=== PATIENT | male | born 1940 | race Caucasian/White ===

== ENCOUNTER → 2016-09-29 | Outpatient (CLI) | payer OTHER | LOC: BHFA 13:15 | PROVIDERS: ATTEND Internal Medicine Cardiovascular Disease | DX: I10 Essential (primary) hypertension (principal) ==

== ENCOUNTER → 2016-11-05 | Outpatient (CLI) | payer OTHER | LOC: BHFA 11:30 | PROVIDERS: ATTEND Internal Medicine Cardiovascular Disease | DX: E78.5 Hyperlipidemia, unspecified (principal); I10 Essential (primary) hypertension; I34.1 Nonrheumatic mitral (valve) prolapse; I34.0 Nonrheumatic mitral (valve) insufficiency; I27.2 Other secondary pulmonary hypertension ==

== ENCOUNTER 2017-01-06 12:30 | Day surgery (SDC) | payer OTHER ==
[2017-01-06] MEDS ORDERED: fentaNYL 100 MCG/2 ML INJ IVP ONE (13:38)
[2017-01-06] MEDS ORDERED: BENZOCAINE UNIT DOSE SPRAY HURRICAINE MM ONE (13:38)
[2017-01-06] MEDS ORDERED: NS 1,000 ML IV ONE (13:38)
[2017-01-06] MEDS ORDERED: MIDAZOLAM 2 MG/2 ML VIAL IVP ONE (13:38)
[2017-01-06] MEDS ORDERED: fentaNYL 100 MCG/2 ML INJ ONE (13:39)
[2017-01-06] MEDS ORDERED: MIDAZOLAM 2 MG/2 ML VIAL ONE (13:39)
--- NOTE | 2017-01-06 16:23 | ECHO ---
[id number] + + [address] : : [facility] [address] : : [phone] + + Transesophageal Echocardiographic Report + ---+ :Name: MARIA LUISA CHAN LStudy Date: 01/06/2017 01:35 PM : : Hospital Admission Number: [id number] [facility]: :: 1940 Gender: Male : :Age: 76 yrs Race: WH : :Reason For Study: Eval LV Fx : :History: Murmur : + ---+ Left Ventricle The left ventricular ejection fraction is normal. Atria The interatrial septum is intact with no evidence for an atrial septal defect. Injection of contrast documented no interatrial shunt. The atrial septum is aneurysmal. Mitral Valve There is mild mitral valve prolapse. There is no mitral valve stenosis. There is moderate mitral regurgitation with multiple jets. Tricuspid Valve There is trace to mild tricuspid regurgitation. Aortic Valve The aortic valve is normal in structure and function. There is no aortic stenosis. There is no aortic insufficiency. Pulmonic Valve The pulmonic valve is normal in structure and function. There is no pulmonic valvular regurgitation. Vessels The aortic root is normal size. Conclusion A 2D transesophageal echocardiogram with color flow Doppler was performed. The left ventricular ejection fraction is normal. The interatrial septum is intact with no evidence for an atrial septal defect. Injection of contrast documented no interatrial shunt. The atrial septum is mildly aneurysmal. There is mild mitral valve prolapse. There is moderate mitral regurgitation with multiple jets. There is trace to mild tricuspid regurgitation. The aortic valve is normal in structure and function. The mitral regurgitation is confirmed to be greater than mild so the patient should have a follow up transthoracic echocardiogram every year, realizing the severity of the mitral regurgitation will be underestimated on that study. Final Reading Physician: Mauri Workman signed on 01/06/2017 04:22 PM Ordering Physician: Slick Montana Performed By: Slick Montana MD
== END 2017-01-06 16:20 | disposition home or self-care (01) ==
LOC: FCATH 12:30
PROVIDERS: ATTEND Internal Medicine Cardiovascular Disease
PROC: B245ZZ4 Ultrasonography of Left Heart, Transesophageal (ICD-10-PCS; principal; 2017-01-06)
DX: I34.0 Nonrheumatic mitral (valve) insufficiency (principal); I34.1 Nonrheumatic mitral (valve) prolapse; E78.5 Hyperlipidemia, unspecified; I10 Essential (primary) hypertension; I27.2 Other secondary pulmonary hypertension
CPT/HCPCS: J2250; J3010

== ENCOUNTER → 2017-10-26 | Outpatient (CLI) | payer OTHER | LOC: BHFA 10:00 | PROVIDERS: ATTEND Internal Medicine Cardiovascular Disease | DX: I49.9 Cardiac arrhythmia, unspecified (principal); E78.5 Hyperlipidemia, unspecified; I34.0 Nonrheumatic mitral (valve) insufficiency; I34.1 Nonrheumatic mitral (valve) prolapse; I27.20 Pulmonary hypertension, unspecified; I10 Essential (primary) hypertension ==

== ENCOUNTER → 2017-12-07 | Outpatient (CLI) | payer OTHER | LOC: FIMAGING 11:25 | PROVIDERS: ATTEND Internal Medicine | DX: R91.8 Other nonspecific abnormal finding of lung field (principal); M41.85 Other forms of scoliosis, thoracolumbar region ==

== ENCOUNTER 2018-01-06 13:01 | Observation (INO) | payer OTHER ==
[2018-01-06] MEDS ORDERED: FAMOTIDINE 20 MG TAB PO ONE (13:02)
[2018-01-06] MEDS ORDERED: NS 1,000 ML IV ONE (13:02)
[2018-01-06] MEDS ORDERED: diphenhydrAMINE 25 MG CAP PO ONE (13:02)
[2018-01-06] MEDS ORDERED: ASPIRIN EC 325 MG TAB PO ONE ×2 (13:02→15:02)
[2018-01-06] MEDS ORDERED: DIAZEPAM 5 MG TAB PO ONE (13:02)
[2018-01-06] MEDS ORDERED: VERAPAMIL 5 MG/2 ML VIAL ONE (13:18)
[2018-01-06] MEDS ORDERED: HEPARIN 10,000 UNIT/10 ML MDV (1,000 UNIT/ML) ONE (13:18)
[2018-01-06] MEDS ORDERED: LIDOCAINE 1% 300 MG/30 ML SDV ONE (13:18)
[2018-01-06] MEDS ORDERED: fentaNYL 100 MCG/2 ML INJ ONE (13:18)
[2018-01-06] MEDS ORDERED: MIDAZOLAM 2 MG/2 ML VIAL ONE (13:18)
[2018-01-06] MEDS ORDERED: IOPAMIDOL (ISOVUE-370) 150 ML BTL IV ONE (13:19)
--- NOTE | 2018-01-06 13:27 | CPEKG ---
Heart Rate: 59 RR Interval: 1017 P-R Interval: 200 QRSD Interval: 100 QT Interval: 456 QTC Interval: 452 P [place]: 71 QRS [place]: 27 T Wave [place]: 62 EKG Severity - ABNORMAL ECG - EKG Impression: SINUS RHYTHM EKG Impression: VENTRICULAR PREMATURE COMPLEX EKG Impression: LEFT VENTRICULAR HYPERTROPHY Electronically Signed By: Toshia Diez 07-Jan-2018 19:59:56
--- NOTE | 2018-01-06 13:28 | PDGENHP ---
History & Physical Chief Complaint: Chest pain History of Present Illness: 77-year-old male history of hyperlipidemia, hypertension, PVCs, mitral regurgitation with a several day history of progressive exertional chest tightness. This began while hiking. He has increased in frequency and duration. He was seen at Dr. Ovalle office today. EKG showed well as T-waves and is admitted for diagnostic angiogram. He is currently not having pain. 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 Surgical history: Polypectomy, hemorrhoidectomy, kidney stone extraction, Mohs surgery, tonsillectomy Relevant Physical Exam: 130/70, heart rate 70,. No JVP at 90 degrees. Chest clear to auscultation percussion. Cardiac examination no RV lift. Regular rate and rhythm without gallop. 2/6 systolic murmur best heard at the apex. Abdomen is soft nontender with good bowel sounds. Extremities are free of edema. Radial pulses +2 and equal with negative Irvin's test. Femoral pulses + 2 and equal. Cardiorespiratory Assessment: Assessment: Unstable angina in this 77-year-old male with hypertension hyperlipidemia. Plan for diagnostic coronary angiogram with an eye towards intervention. Continue current medical therapy.
--- NOTE | 2018-01-06 13:29 | PDPROPOC ---
Sedation Plan of Care Sedation Plan of Care: vital signs stable, mental status noted, patient educated of risks, benefits, alternatives, patient can tolerate sedation ASA Classification: ASA 3 Planned drugs: fentanyl, midazolam Mallampati Score: Class 1 Mallampati Reference Image: Patient passed 3-3-2 rule?: Yes
[2018-01-06 13:46] LABS: PLATELET COUNT 268 10^3/uL (150-400)
[2018-01-06 13:58] LABS: PROTIME(PATIENT) 13.4 SEC (12.0-15.0)
[2018-01-06] MEDS ORDERED: TICAGRELOR 90 MG TAB ONE (15:00)
[2018-01-06] MEDS ORDERED: NITROGLYCERIN 0.4 MG BTL SL PRN (15:02)
[2018-01-06] MEDS ORDERED: ATROPINE SULFATE 1 MG/10 ML SYR IVP PRN (15:02)
[2018-01-06] MEDS ORDERED: TICAGRELOR 90 MG TAB PO ONE (15:02)
[2018-01-06] MEDS ORDERED: ONDANSETRON 4 MG/2 ML VIAL IVP PRN (15:02)
--- NOTE | 2018-01-06 15:08 | PDDXCAT ---
Diagnostic Cath Note - . Date: 01/06/18 Waxer Operator: Philip Indication: CCC Class III and IV angina on medical treatment - Procedure Access: left wrist Procedure: left heart catheterization, coronary angiography, left ventriculogram - Materials Left Heart Cath size: 5F Left Heart Cath materials: JR4.0, pigtail - Findings-Left Heart Catheterization LM: Unobstructed LAD: Subtotal proximally with thrombotic occlusion of the principal diagonal LCX: Luminal irregularities RCA: Dominant vessel: Luminal irregularities EDP: 14 mm of mercury post procedure LVEF: 60 Wall motion: Inferior hypokinesis Complications: None Estimated blood loss: <50ml Closure method: TR Band Assessment: Unstable angina with critical stenosis of the proximal LAD involving the principal diagonal. Preserved LV systolic function with normal filling pressures. Plan: Urgent PC I. After reviewing diagnostic angiograms it was elected to proceed with urgent PC I. Patient was anticoagulated with heparin. Therapeutic ACT was confirmed. Using a 5 [place] EBU 3.75 guiding catheter left main coronary selectively intubated guiding shots were performed. Using a 0.014 luge wire the LAD to stenosis was crossed. A 2.5 x 15 mm balloon was used to reestablish antegrade flow with improvement luminal diameter. 3.5 x 24 mm synergy stent was placed on the wire and positioned across the stenosis. Position confirmed in 2 orthogonal views. Deployed using a single inflation to 15 atmospheres. Repeat angiogram showed DAVID grade 3 flow to the apex. Left ventricular angiography was performed postprocedure. Conclusions: Unstable angina status post successful PCI and stenting of the LAD. Patient received 4 mg of Versed 100 mcg of fentanyl. 250 cc of contrast. 10.7 min of fluoroscopy with 921 mGy.
--- NOTE | 2018-01-06 15:45 | CPEKG ---
Heart Rate: 53 RR Interval: 1132 P-R Interval: 212 QRSD Interval: 104 QT Interval: 484 QTC Interval: 455 P [place]: 65 QRS [place]: 36 T Wave [place]: 48 EKG Severity - ABNORMAL ECG - EKG Impression: SINUS RHYTHM EKG Impression: LEFT ATRIAL ABNORMALITY EKG Impression: LEFT VENTRICULAR HYPERTROPHY EKG Impression: POSSIBLE ANTERIOR ISCHEMIA Electronically Signed By: Toshia Diez 07-Jan-2018 20:01:29
[2018-01-07] MEDS: TICAGRELOR 90 MG TAB PO SCH ×3 (02:58→10:58)
[2018-01-07 07:41] VITALS: BP 136/83
[2018-01-07] MEDS ORDERED: amLODIPine BESYLATE 5 MG TAB PO SCH (09:00)
[2018-01-07] MEDS ORDERED: ASPIRIN EC 81 MG TAB PO SCH (09:00)
[2018-01-07] MEDS ORDERED: ATORVASTATIN CALCIUM 20 MG TAB PO SCH (09:00)
[2018-01-07] MEDS ORDERED: HYDROCHLOROTHIAZIDE 12.5 MG CAP PO SCH (09:00)
[2018-01-07] MEDS ORDERED: FINASTERIDE 5 MG TAB PO SCH (09:00)
[2018-01-07] MEDS ORDERED: IRBESARTAN 150 MG TAB PO SCH (09:00)
--- NOTE | 2018-01-07 09:25 | GCON ---
[f rep st] CONSULTATION Patient was admitted by my partner, Dr Allen Palacios, on 01/06/2018. He has a long history of hype rlipidemia, hypertension, PVCs, mitral regurgitation, and came in with exertional chest tightness. He has a history also of pulmonary hypertension, monoclonal paraproteinemia. He was thought to have unstable angina and was taken to the construction laborer. Patient's sodium 143, potassiu m 3.5, chloride 104, CO2 28, BUN 19, creatinine 0.9. His cholesterol was 155, with an LDL of 76. It does not appear the patient had a troponin drawn prior to this. We will order 1 now to try to risk stratify him and see if he had a [id number] elevation myocardial infarction at this point time, w hich would impact his prognosis. The patient's electrocardiogram showed PVCs, LVH, sinus rhythm. The patient had terminal T-wave inve rsions in V2, V3, perhaps V4. The patient was taken to the construction laborer by my partner Dr Palacios and e patient was found to have a subtotally-occluded LAD with thrombotic occlusion of the principal diag onal, luminal irregularities in the circumflex, with luminal irregularities in the right coronary art lewis that was dominant. The ejection fraction was estimated at 60%. The patient had inferior hypokin esis, and the patient had anticoagulation with heparin. A 3.5 x 24 mm Synergy stent was placed. The repeat angiogram showed DAVID-3 flow to the apex. The patient is up and about and being discharged home. Discharge medications are attached and in the record. All questions from the family have been answered. Patient's wrist is excellent. The patie nt is stable. Followup will be with Dr Montana in 3-5 days. Diet, exercise, prevention have all been reviewed. All questions answered. The patient is in stable condition. However, if they deteriorate in any way they are encouraged to get back to the hospital right away. /[id number]/MODL
--- NOTE | 2018-01-07 10:46 | CPEKG ---
Heart Rate: 57 RR Interval: 1053 P-R Interval: 212 QRSD Interval: 104 QT Interval: 508 QTC Interval: 495 P [place]: 68 QRS [place]: 46 T Wave [place]: 74 EKG Severity - ABNORMAL ECG - EKG Impression: SINUS RHYTHM EKG Impression: PROBABLE LEFT ATRIAL ABNORMALITY EKG Impression: LEFT VENTRICULAR HYPERTROPHY EKG Impression: BORDERLINE PROLONGED QT INTERVAL EKG Impression: POSSIBLE ANTERIOR ISCHEMIA Electronically Signed By: Toshia Diez 07-Jan-2018 20:00:58
== END 2018-01-07 11:45 | disposition home or self-care (01) ==
LOC: FCATH 13:01 → F2W 15:02
PROVIDERS: ADMIT Internal Medicine Interventional Cardiology; ATTEND Internal Medicine Interventional Cardiology
PROC: B2151ZZ Fluoroscopy of Left Heart using Low Osmolar Contrast (ICD-10-PCS; principal; 2018-01-06)
PROC: 027034Z Dilation of Coronary Artery, One Artery with Drug-eluting Intraluminal Device, Percutaneous Approach (ICD-10-PCS; principal; 2018-01-06)
PROC: B2111ZZ Fluoroscopy of Multiple Coronary Arteries using Low Osmolar Contrast (ICD-10-PCS; principal; 2018-01-06)
PROC: 4A023N7 Measurement of Cardiac Sampling and Pressure, Left Heart, Percutaneous Approach (ICD-10-PCS; principal; 2018-01-06)
DX: I20.0 Unstable angina (principal); I10 Essential (primary) hypertension; E78.5 Hyperlipidemia, unspecified; J45.909 Unspecified asthma, uncomplicated; N40.0 Benign prostatic hyperplasia without lower urinary tract symptoms; M54.5 Low back pain; I34.0 Nonrheumatic mitral (valve) insufficiency; D47.2 Monoclonal gammopathy; I27.20 Pulmonary hypertension, unspecified
CPT/HCPCS: 93005; 93458; C1725; C1769; C1874; C1887; C9600; J1644; J2250; J3010; Q9967

== ENCOUNTER → 2018-01-19 | Outpatient (CLI) | payer OTHER | LOC: FCPNEURO 20:30 | PROVIDERS: ATTEND Psychiatry & Neurology Sleep Medicine | DX: G47.33 Obstructive sleep apnea (adult) (pediatric) (principal) ==

== ENCOUNTER → 2018-02-09 | Outpatient (CLI) | payer OTHER | LOC: BHFA 10:00 | PROVIDERS: ATTEND Internal Medicine Cardiovascular Disease | DX: I05.9 Rheumatic mitral valve disease, unspecified (principal) ==

== ENCOUNTER → 2018-11-24 | Outpatient (CLI) | payer OTHER | LOC: BHFA 13:15 | PROVIDERS: ATTEND Internal Medicine Cardiovascular Disease | DX: I34.1 Nonrheumatic mitral (valve) prolapse (principal) ==

== ENCOUNTER 2018-12-01 19:50 | Emergency (ER) | payer OTHER ==
--- NOTE | 2018-12-01 19:59 | EDPHY ---
H & P Time Seen by Provider: 12/01/18 19:55 HPI/ROS: CHIEF COMPLAINT: Right facial droop, slurred speech HISTORY OF PRESENT ILLNESS: The patient is a 78-year-old male who presents emergency department with new onset right facial droop and slurred speech. Patient's son is with him in the emergency department. Patient's son went to visit him this evening. The patient was acting normally until 7:00 p.m. The patient had sudden onset of right facial droop and slurred speech. Patient has had no previous stroke or TIA per report. The patient takes Plavix and aspirin but no other blood thinner. Patient has had no recent trauma. No recent surgery. REVIEW OF SYSTEMS: 10 systems were reveiwed and are negative with the exception of the elements mentioned in the history of present illness. Past Medical/Surgical History: Includes hypertension, high cholesterol Smoking Status: Never smoked Physical Exam: GENERAL: Well-appearing, in no acute distress, alert. HEENT: Eyes normal to inspection, normal pharynx, no signs of dehydration. NECK: Normal, supple. RESPIRATORY: Clear to auscultation bilaterally, no rales, rhonchi or wheezing. CVS: Regular rate and rhythm, no rubs, murmurs, or gallops. ABDOMEN: Soft, nontender, nondistended, no organomegaly. BACK: Normal to inspection, no CVA tenderness. SKIN: Normal color, no rash, warm, dry. No pallor. EXTREMITIES: No pedal edema, no calf tenderness, no Homans sign or cords, no joint swelling. NEURO/PSYCH: Higher functions: Alert and Oriented x3. Slurred speech. Normal mood and affect. Cranial nerves: Normal as tested. Cerebellar: Normal as tested. Good finger to nose, good [id number]. Peripheral exam: Normal motor exam. Normal sensation. Constitutional: Initial Vital Signs Temperature (C) 36.8 C 12/01/18 20:02 Heart Rate 70 12/01/18 20:02 Respiratory Rate 18 12/01/18 20:02 Blood Pressure 178/90 H 12/01/18 20:02 O2 Sat (%) 98 12/01/18 20:02 O2 Delivery Mode Room Air Allergies/Adverse Reactions: No Known Allergies Allergy (Verified 12/01/18 20:09) Home Medications: Medication Instructions Recorded Aspirin EC [Aspirin EC 81 mg (*)] 81 mg PO DAILY 04/23/14 Finasteride [Proscar 5 MG (*)] 5 mg PO DAILY 01/16/14 amLODIPine BESYLATE [Norvasc 5 mg 5 mg PO DAILY 01/16/14 (*)] Herbals/Supplements -Info Only 1 ea PO DAILY 01/06/18 Irbesartan/Hydrochlorothiazide 1 each PO DAILY 01/06/18 [Irbesartan-Hctz 300-12.5 mg Tb] Atorvastatin Calcium 80 mg PO DAILY #30 tablet 01/07/18 Ticagrelor [Brilinta] 90 mg PO BID #60 tab 01/07/18 Medical Decision Making - Diagnostics Imaging Results: Imaging Impressions Head CT 12/01/18 19:55 Impression: Acute hemorrhage in the left basal ganglia. Findings discussed with ARAMIS RAMIREZ 12/01/2018 at 20:02. ED Course/Re-evaluation: In the emergency department I met the patient on arrival. The patient came in through triage. He was made a stroke alert from triage. I met him in room 1 on arrival. He was placed in the pram. Prior to gaining access the patient was taken for noncontrast head CT imaging. I explained the plan to the patient. I answered all his questions. I took further history from the patient's son who is a physician. He was in the room. I met the patient when he returned from CT imaging. Patient still right facial droop and slurred speech. No headache. No other complaints. Head CT: Please refer the dictated report by Dr. Loaiza. The patient has a 2 cm left basal gangla bleed with no mass effect. 1999: I discussed case with Dr. Pires from Neurosurgery. He recommended the patient's blood pressure be kept under 140 systolic. No further imaging at this time. 2006: EKG shows normal sinus rhythm, normal rate, normal axis, normal intervals. LVH. There are no ST or T-wave abnormalities. I discussed the plan with the patient and his son is a physician. I answered all her questions. 2019: Discussed case with the hospitalist service, Dr. Hughes. The patient will be admitted. I discussed case with [facility]. They agree with the plan for pressure control on Cardene and admission. Differential Diagnosis: My differential includes but is not limited to ischemic CVA, hemorrhagic CVA, dissection, aneurysm, electrolyte abnormality, sugar abnormality, ACS, acute HI , Fuentes's palsy Critical Care Time: Patient required 45 min of critical care time. This was exclusive of any unbundled procedure. This was due the patient focal neurologic deficits, stroke alert, time spent at the bedside, consultation with Neurology, Neurosurgery and Internal Medicine - Data Points Laboratory Results: Laboratory Results 12/01/18 20:07 12/01/18 12/01/18 12/01/18 20:07 20:07 20:07 WBC 11.18 10^3/uL H 10^3/uL (3.80-9.50) RBC 5.03 10^6/uL 10^6/uL (4.40-6.38) Hgb 15.0 g/dL g/dL (13.7-17.5) Hct 44.3 % % (40.0-51.0) MCV 88.1 fL fL (81.5-99.8) MCH 29.8 pg pg (27.9-34.1) MCHC 33.9 g/dL g/dL (32.4-36.7) RDW 12.6 % % (11.5-15.2) Plt Count 284 10^3/uL 10^3/uL (150-400) MPV 10.3 fL fL (8.7-11.7) Neut % (Auto) 59.7 % % (39.3-74.2) Lymph % (Auto) 23.5 % % (15.0-45.0) Floyd % (Auto) 10.9 % % (4.5-13.0) Eos % (Auto) 4.5 % % (0.6-7.6) Baso % (Auto) 1.0 % % (0.3-1.7) Nucleat RBC Rel Count 0.0 % % (0.0-0.2) Absolute Neuts (auto) 6.67 10^3/uL H 10^3/uL (1.70-6.50) Absolute Lymphs (auto) 2.63 10^3/uL 10^3/uL (1.00-3.00) Absolute Monos (auto) 1.22 10^3/uL H 10^3/uL (0.30-0.80) Absolute Eos (auto) 0.50 10^3/uL H 10^3/uL (0.03-0.40) Absolute Basos (auto) 0.11 10^3/uL H 10^3/uL (0.02-0.10) Absolute Nucleated RBC 0.00 10^3/uL 10^3/uL (0-0.01) Immature Gran % 0.4 % % (0.0-1.1) Immature Gran # 0.05 10^3/uL 10^3/uL (0.00-0.10) APTT Pending Sodium Pending Potassium Pending Chloride Pending Carbon Dioxide Pending Anion Gap Pending BUN Pending Creatinine Pending Estimated GFR Pending Glucose Pending Calcium Pending Departure - Departure Disposition: [facility] [place] [facility] Acute Clinical Impression: Facial droop, Hemorrhagic stroke Condition: Good Referrals: NONE *PRIMARY CARE P,. [Primary Care Provider] - As per Instructions
[2018-12-01 20:17] LABS: PLATELET COUNT 284 10^3/uL (150-400)
[2018-12-01] MEDS ORDERED: niCARdipine/NACL 200 ML IV SCH ×2 (20:30→22:30)
[2018-12-01 22:11] VITALS: BP 121/64
[2018-12-01] MEDS ORDERED: ACETAMINOPHEN 325 MG TAB PO PRN (22:18)
[2018-12-01] MEDS ORDERED: ONDANSETRON 4 MG/2 ML VIAL IVP PRN (22:18)
[2018-12-01] MEDS ORDERED: ONDANSETRON DISINTEGRATING 4 MG TAB PO PRN (22:18)
[2018-12-01] MEDS ORDERED: NS 1,000 ML IV SCH (22:30)
--- NOTE | 2018-12-01 23:43 | CPEKG ---
Test Reason : OPEN Blood Pressure : / mmHG Vent. Rate : 066 BPM Atrial Rate : 066 BPM P-R Int : 200 ms QRS Dur : 107 ms QT Int : 440 ms P-R-T Axes : 073 046 020 degrees QTc Int : 461 ms Sinus rhythm Left atrial enlargement Left ventricular hypertrophy Confirmed by Viola Knutson ([id number]) on 12/01/2018 11:42:19 PM Referred By: Viola Knutson Confirmed By:Viola Knutson
== END 2018-12-01 22:30 | disposition still patient (30) ==
LOC: UNDOADMIN 20:20
DX: I63.9 Cerebral infarction, unspecified (principal); E78.00 Pure hypercholesterolemia, unspecified; I10 Essential (primary) hypertension
CPT/HCPCS: 82435-PO; 82565-PO; 82947-PO; 84132-PO; 84295-PO; 84484-ER; 84520-PO; 85014-ER; 96365; 96366

== ENCOUNTER 2018-12-05 10:39 | Inpatient (IN) | payer OTHER ==
[2018-12-05] MEDS ORDERED: ACETAMINOPHEN 325 MG TAB PO PRN (16:23)
[2018-12-05] MEDS ORDERED: hydrALAZINE 25 MG TAB PO PRN (16:23)
[2018-12-05] MEDS ORDERED: BISACODYL 10 MG SUPP PR PRN (16:23)
--- NOTE | 2018-12-05 17:32 | GHP ---
[f rep st] HISTORY AND PHYSICAL POST ADMISSION PHYSICIAN EVALUATION AND REHABILITATION TREATMENT PLAN DATE OF ADMISSION: 12/05/2018 DATE OF EVALUATION: 12/05/2018. TIME OF EVALUATION: 1545. REFERRING FACILITY: [facility]. REFERRING PHYSICIAN: Dr. Cuevas IMPAIRMENT GROUP: 1.2. DATE OF ONSET: 12/01/2018. CONSULTING PHYSICIANS: He was seen by neurologist, Dr. Vazquez. There is also a consultation with Neurosurgery. 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 ETIOLOGIC DIAGNOSIS: Right body involvement (left brain). HISTORY OF PRESENT ILLNESS: This patient was initially evaluated at [facility] on 12/01/2018, with sudden onset of right facial droop, slurred speech, and progressive right upper extremity weakness. Head CT showed a left basal ganglia intracranial hemorrhage of 1.5 x 2.2 cm in size and 1.9 cm craniocaudal. It had had slight expansion since prior head CT done approximately an hour earlier. The patient's son reports that there was also a concern for an area of ischemia, and so he was transferred to [facility] for further care. He had an increased dose of amlodipine, as well as treatment with p.r.n. hydralazine to achieve blood pressure control. Anti-platelet agents were held with consideration to restart in approximately 10 days. He was otherwise medically stabilized and appropriate for inpatient rehabilitation STUDIES AND LABS DURING HIS STAY: When seen at [facility] on , he had an elevated white blood cell count at 11.18. There was no left shift. CBC was otherwise normal. PTT was normal at 30.7. Basic metabolic profile was normal but for a mild elevation of glucose at 158 and 159 , but these were likely not fasting. Troponin was 0.01 and, on the day of discharge, a BMP was overall normal. Chloride was high at 112. BUN was high at 24. Creatinine clearance was 60. PRECAUTIONS: He is a fall risk, and he has aspiration risk. ACTIVE COMORBIDITIES: Has the tier 3 comorbidity of hemiparesis with weakness in the right upper extremity and right lower extremity. He otherwise has no active tier 1, tier 2, or tier 3 comorbidities. PAST MEDICAL HISTORY: 1. Coronary artery disease, status post drug-eluting stent. 2. Hypertension. 3. Dyslipidemia. 4. Benign prostatic hypertrophy with elevated PSA. 5. Obstructive sleep apnea. 6. Intolerance of positive airway pressure therapy. 7. Mitral regurgitation. PAST SURGICAL HISTORY: He had angioplasty and stenting in December of 2017. PRE-HOSPITAL MEDICATIONS: 1. Aspirin 81 mg p.o. daily. 2. Finasteride 5 mg p.o. daily. 3. Amlodipine 5 mg daily. 4. Ubiquinone daily. 5. Irbesartan/hydrochlorothiazide 300/12.5 mg 1 p.o. daily. 6. Atorvastatin 80 mg p.o. daily. 7. Ticagrelor 0 mg p.o. twice daily. ADMISSION MEDICATIONS: 1. Amlodipine 5 mg twice daily. 2. Atorvastatin 80 mg daily. 3. Finasteride 5 mg daily. 4. Hydralazine 10 mg 4 times daily p.r.n. systolic blood pressure greater than 150. 5. Irbesartan/hydrochlorothiazide 300/12.5, one p.o. daily. 6. Ubiquinone 60 mg p.o. daily. ALLERGIES: There are no known drug allergies. PSYCHOSOCIAL HISTORY: He is , and he lives with his . 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 He has a local son, who is a information services tech in [place]. There are 3 steps to enter the house. He is a nonsmoker. He enjoys an occasional glass of wine. FAMILY HISTORY: Noncontributory. REVIEW OF SYSTEMS: He reports he is sleeping well. He is not in pain. He denies cough or dyspnea. He denies chest pain or palpitations. He denies nausea, vomiting, constipation, or diarrhea. His weight has been stable. He denies urinary frequency or dysuria. He denies joint pain or joint swelling. In terms of neurologic symptoms, he denies headache or vision changes. He denies loss of sensation. He is aware of slightly slurred speech and difficulty with swallowing. He has right upper and lower extremity weakness. He feels some lightheadedness when standing in the morning, but not in the afternoon. Otherwise, a 10-point review of systems is negative. PHYSICAL EXAM: VITAL SIGNS: Blood pressure is 121/80. Heart rate is 70. Respiratory rate is 18. Oxygen saturation is 91% on room air. Temperature is 36.6 degrees centigrade. His weight is 83 kg, for a body mass index of 27.1. GENERAL: This is a well-nourished, well-developed, elderly man, appears chronologic age, seated in a chair, dressed in street clothes, cooperative, and in no acute distress. HEENT: Extraocular movements are intact. Pupils are equal, round, reactive to light. Mucous membranes are moist. Dentition is in good condition. He has a crowded airway, Mallampati class 3. NECK: Supple. HEART: there is an irregular rhythm. There are no murmurs, rubs, or gallops. LUNGS: Clear to auscultation bilaterally. ABDOMEN: Soft, nontender, nondistended with normoactive bowel sounds, and no hepatosplenomegaly. EXTREMITIES: There is no cyanosis, clubbing, or edema. NEUROLOGIC: He is alert and oriented x3. Cranial nerves 2-12 are grossly intact except for a right facial droop. Motor strength on the right upper extremity is 3/5 at the deltoid. He is able to develop considerable strength at the biceps and triceps at least 4/5, but this is not immediate and take some time to develop its full strength, and manufacturing associate is 2/5 to 3/5 on the right. Right hip flexor is 3/5. Right quadriceps is 5/5, and right hamstring is 3/5 to 4/5. Sensation is intact to light touch overall, and there is no extinction to double simultaneous stimulation. Deep tendon reflexes are globally hypoactive. Pronator drift is difficult to ascertain, as is difficult for him to maintain palms up with arms extended on the right side. There does seem to be slight pronator drift with his hand starting nearly vertical. On [id number] testing, he is unable to accomplish this on the right side. CURRENT LEVEL OF FUNCTION: Per the pre-admission screen. Regarding diet, feeding, and swallowing, he was on a regular texture diet with instructions to alternate liquids and solids. Maintain a slow rate and careful propulsion of the bolus prior to swallow. He required setup and supervision. Regarding dressing, he was dependent. He was continent of bowel and bladder. Bed mobility was done with close standby assist with the head of the bed elevated. [id number] transfers required contact guard assist using a front- wheeled walker with increased time to position and manufacturing associate the front wheeled walker with the right hand. Balance seated required minimal assist due to a rightward lean, and he was progressing to standby assist with voice cues. Endurance was good. He was able to ambulate 40 feet with maximal assistance of 1, and minimal assistance of a second person to follow with a wheelchair and provide hand-held assist. There was a short step length on the right with soft knee buckle in stance, and a heavy lean to the right throughout his gait. Regarding communication, he had moderate dysarthria. Regarding cognition, he scored 30/30 on the [facility] Mental Status Exam. He was noted to have right-sided inattention and decreased midline awareness. On today's exam, there are no significant changes from the preadmission screen. IMPRESSION: This is a 78-year-old man with history of coronary artery disease and drug-eluting stent, for which he has been treated with clopidogrel plus aspirin since December of 2017. He also has hypertension. He presented to the hospital with symptoms of right-sided weakness and slurred speech, and was diagnosed with a right basal ganglia and putamen hemorrhagic cerebrovascular accident. As there was also concern for an area of ischemia, he was transferred to [facility] where more sophisticated intervention was available than at [facility]. There, he was found to be stable in terms of the hemorrhagic cerebrovascular accident and no intervention was needed. He had blood pressure control with an increase in his amlodipine from his home dose of 5 mg daily to 5 mg twice daily. Anti-platelet agents were held. He also had hydralazine on a p.r.n. basis. He was otherwise medically stable, and once he had adequate blood pressure control, he was appropriate for transfer to Inpatient Rehabilitation. His goal is to return home with his family and supportive services. For a safe discharge, he will need to achieve independence with eating, grooming, and bed mobility, modified independence for transfers, toileting, bathing, and dressing , and will be able to ambulate with a least restrictive device on level and unlevel surfaces for community distances. His dysarthria will need to improve to a mild level, and he will need to demonstrate independence with exercises. He will have therapy with Physical Therapy, Occupational Therapy, and Speech and Language Pathology for 60 minutes for a day for each discipline on 5-7 days of the week. His expected duration of stay is 5-7 days. It is anticipated that upon discharge he will likely benefit from outpatient OT , NUMERICAL CONTROL DRILL PRESS OPERATOR, and PT. Additionally, he may benefit from a stroke support group. PLAN: 1. Hemorrhagic CVA in the right basal ganglia, and putamen with right-sided weakness and impairments to mobility and activities of daily living. PT and OT to optimize his function towards discharge home at the independent to modified independent level. 2. Dysarthria and left facial droop and subjective difficulty with swallowing. Evaluation and management per Speech and Language Pathology. 3. Hypertension. Amlodipine has been increased from 5 mg daily to 5 mg twice daily. He is continuing his home dose of irbesartan/hydrochlorothiazide of 300/ 12.5 mg daily. Will check orthostatic blood pressure and pulse in the morning and in the afternoon to assure that we are not bringing blood pressure too low, and increasing risk of falls. This may be a fine line, as his blood pressure needs to be systolic less than 140 to protect against subsequent hemorrhage. 4. Coronary artery disease with drug-eluting stent. He was told that clopidogrel would continue for 1 year, and after that he would be on aspirin alone. As he has had a hemorrhagic stroke, will need to verify with his stucco plasterer whether he needs to resume both anti-platelet agents for term. 5. Dyslipidemia. Continue atorvastatin. 6. BPH. Continue finasteride. 7. Irregular heart beat. He was in normal sinus rhythm on EKG at the emergency department at [place], and apparently there were no dysrhythmias seen on telemonitoring. Son reports that he had frequent PVCs. We will obtain EKG to assess current cardiac rhythm. 8. Prophylaxis. We will continue heparin 5000 units subcutaneous three times daily, which he was receiving in the hospital until his mobility increases to ambulating 150' or more 3 times a day. 9. Hospital discharge paperwork recommend followup with [facility], Dr. Vazquez, in approximately 10 days to consider resuming antiplatelet agents. His family may choose to do their followup with the local [place] [facility]. His primary stucco plasterer is Dr. Montana, and his primary care physician is Dr. Aleksandra Ovalle. /[id number]/MODL MTDD
[2018-12-05] MEDS: amLODIPine BESYLATE 5 MG TAB PO SCH (20:44)
[2018-12-05] MEDS: HEPARIN 5,000 UNIT/0.5 ML INJ SC SCH (21:28)
[2018-12-06] MEDS: HEPARIN 5,000 UNIT/0.5 ML INJ SC SCH ×3 (05:55→21:56)
[2018-12-06] MEDS ORDERED: Herbals/Supplements -Info Only PO SCH (09:00)
[2018-12-06] MEDS: FINASTERIDE 5 MG TAB PO SCH (09:06)
[2018-12-06] MEDS: HYDROCHLOROTHIAZIDE 25 MG TAB PO SCH (09:06)
[2018-12-06] MEDS: IRBESARTAN 150 MG TAB PO SCH (09:07)
[2018-12-06] MEDS: ATORVASTATIN CALCIUM 40 MG TAB PO SCH (09:08)
[2018-12-06] MEDS: amLODIPine BESYLATE 5 MG TAB PO SCH ×2 (09:08→21:54)
--- NOTE | 2018-12-06 20:50 | SOAPPROG ---
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 PT and OT to optimize his function towards discharge home at the independent to modified independent level. Dysarthria and left facial droop and subjective difficulty with swallowing. Evaluation and management per Speech and Language Pathology. Hypertension. Amlodipine has been increased from 5 mg daily to 5 mg twice daily. He is continuing his home dose of irbesartan/hydrochlorothiazide of 300/ 12.5 mg daily. Will check orthostatic blood pressure and pulse in the morning and in the afternoon to assure that we are not bringing blood pressure too low, and increasing risk of falls. This may be a fine line, as his blood pressure needs to be systolic less than 140 to protect against subsequent hemorrhage. Insomnia. Trial of trazodone 50 mg at HS starting 12/06/2018. Coronary artery disease with drug-eluting stent. He was told that clopidogrel would continue for 1 year, and after that he would be on aspirin alone. Discussed with Dr. Ba, Cardiology, 12/06/2018. Would not restart clopidogrel. Timing of resuming aspirin should be per Neurology. Would dose aspirin at 81 mg QD. Ventricular bigeminy on EKG 12/05/2018. Asymptomatic, with normal BMP, BNP and Mg on 12/06/2018. D/W Cardiology, Dr. Ba. No indication for intervention or change in treatment plan. Dyslipidemia. Continue atorvastatin. BPH. Continue finasteride. Irregular heart beat. He was in normal sinus rhythm on EKG at the emergency department at [place], and apparently there were no dysrhythmias seen on telemonitoring. Son reports that he had frequent PVCs. We will obtain EKG to assess current cardiac rhythm. Prophylaxis. We will continue heparin 5000 units subcutaneous three times daily , which he was receiving in the hospital until his mobility increases to ambulating 150' or more 3 times a day. FOLLOWUP: Hospital discharge paperwork recommend followup with [facility], Dr. Vazquez, in approximately 10 days to consider resuming antiplatelet agents. His family may choose to do their followup with the local [place] [facility]. His primary creative/art director is Dr. Montana, and his primary care physician is Dr. Aleksandra Ovalle. 12/06/18 20:51 Subjective: Reports poor sleep overnight. Otherwise without complaints. Denies f/c, cough , dyspnea, chest pain or palpitations. Not in pain. Objective: Vital Signs Temp Pulse Resp BP Pulse Ox 36.5 C 66 16 137/77 H 95 12/06/18 20:00 12/06/18 20:00 12/06/18 20:00 12/06/18 20:00 12/06/18 20:00 Laboratory Results 12/06/18 06:10 12/05/18 12/06/18 12/07/18 05:59 05:59 05:59 Intake Total 500 Output Total 600 Balance -100 Physical Exam - Physical Exam General Appearance: WD/WN, alert, no apparent distress Respiratory: normal breath sounds, No crackles, No rhonchi, No wheezing Cardiac/Chest: irregularly irregular, No edema, No diastolic murmur, No systolic murmur Skin: normal color, warm/dry Neuro/Psych: alert, normal mood/affect, oriented x 3, facial droop (left), speech abnormalities (Mild dysarthria) ICD10 Worksheet Patient Problems: Problems Problem Status Onset Facial droop Acute Hemorrhagic stroke Acute
[2018-12-06] MEDS ORDERED: traZODone 50 MG TAB PO SCH (21:00)
[2018-12-07] MEDS: HEPARIN 5,000 UNIT/0.5 ML INJ SC SCH ×3 (06:07→20:29)
--- NOTE | 2018-12-07 09:29 | SOAPPROG ---
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 Today's update: Some grogginess this morning after trial of trazodone 50 mg p.o. At bedtime, though he slept well. Cutting the dose in half after discussion with the patient to a total of 25 mg p.o. At bedtime. Otherwise he describes rehab is going well, no other medical issues impairing his progress. Continue rehabilitation plan. Additional medical issues reviewed without change today include hypertension which is controlled, coronary artery disease with a drug-eluting stent, secondary prophylaxis, ventricular bigeminy, dyslipidemia, BPH, prophylaxis. A total of 25 min was spent on the floor in the care of the patient, the majority of which was spent in counseling and coordination of care regarding sleep management options and coordinating with therapies. 12/07/18 09:25 Subjective: Chief complaint: Grogginess this morning No acute events overnight. Patient denies any new shortness of breath or chest pain, no new numbness, tingling, or weakness. He endorses that he slept better last night with a trial of trazodone 50 mg p.o. At bedtime, but feels a bit groggy this morning and some global weakness without focal changes. He denies any new speech changes. He is amenable to cutting the dose in half, considering other medications on future evenings. He feels he is making good progress in rehabilitation. 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 He did not recall me specifically but recalled projects and people that I worked with. Objective: Vital Signs Temp Pulse Resp BP Pulse Ox 36.7 C 67 16 119/76 93 12/07/18 06:14 12/07/18 08:00 12/07/18 06:14 12/07/18 08:00 12/07/18 06:14 Laboratory Results 12/06/18 06:10 12/06/18 12/07/18 12/08/18 05:59 05:59 05:59 Intake Total 500 300 400 Output Total 600 300 Balance -100 300 100 Physical Exam - Physical Exam General Appearance: WD/WN, alert, no apparent distress EENT: No scleral icterus (R), No scleral icterus (L) Respiratory: lungs clear, normal breath sounds, No respiratory distress, No accessory muscle use, No rales, No rhonchi, No wheezing Cardiac/Chest: normal peripheral pulses, other (Regularly irregular) Skin: normal color, warm/dry, No cyanosis, No diaphoresis Extremities: No pedal edema, No swelling Neuro/Psych: alert, normal mood/affect, motor weakness (Decreased strength incoordination of the right hand, 4/5 in peoplesoft financials and 1/5 in finger abduction) ICD10 Worksheet Patient Problems: Problems Problem Status Onset Facial droop Acute Hemorrhagic stroke Acute
[2018-12-07] MEDS: IRBESARTAN 150 MG TAB PO SCH (10:05)
[2018-12-07] MEDS: HYDROCHLOROTHIAZIDE 25 MG TAB PO SCH (10:05)
[2018-12-07] MEDS: amLODIPine BESYLATE 5 MG TAB PO SCH ×2 (10:05→20:28)
[2018-12-07] MEDS: FINASTERIDE 5 MG TAB PO SCH (10:06)
[2018-12-07] MEDS: ATORVASTATIN CALCIUM 40 MG TAB PO SCH (10:06)
[2018-12-07] MEDS: traZODone 50 MG TAB PO SCH (20:28)
[2018-12-08] MEDS: HEPARIN 5,000 UNIT/0.5 ML INJ SC SCH (06:30)
[2018-12-08] MEDS: amLODIPine BESYLATE 5 MG TAB PO SCH ×2 (08:26→21:27)
[2018-12-08] MEDS: ATORVASTATIN CALCIUM 40 MG TAB PO SCH (08:26)
[2018-12-08] MEDS: IRBESARTAN 150 MG TAB PO SCH (08:26)
[2018-12-08] MEDS: HYDROCHLOROTHIAZIDE 25 MG TAB PO SCH (08:26)
[2018-12-08] MEDS: FINASTERIDE 5 MG TAB PO SCH (08:26)
--- NOTE | 2018-12-08 09:57 | SOAPPROG ---
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 * Initial functional independence measure is 83 on 12/08/2018. Contact guard to standby assistance for transfers. Ambulated 150 ft with contact guard assist and front wheeled walker. Has loss of balance to the right if he is not attending. Grooming and hygiene were done standing with contact guard to close standby assist. Upper body dressing required setup and standby assist. Lower body dressing was standby assist except for donning socks for which she needed minimal assist. Bath transfer was done with contact guard assist, bathing with setup/standby assist. Toileting required contact guard assist for studying. * Continue PT and OT to optimize his function towards discharge home at the independent to modified independent level. Dysarthria and left facial droop and subjective difficulty with swallowing. * Has right labial/lingual/pupil muscle weakness and occasional leakage from the labial seal. Has mild dysarthria. * Continue Speech and Language Pathology. Impairment to higher level cognitive skills including organization and reasoning noted by LINE ERECTOR APPRENTICE. Hypertension. Amlodipine has been increased from 5 mg daily to 5 mg twice daily. He is continuing his home dose of irbesartan/hydrochlorothiazide of 300/ 12.5 mg daily. * Not orthostatic. * Adequate control. Insomnia. Was over-sedated in the morning after trazodone 50 mg at HS starting 12/06/2018. Dose has been decreased to 25 mg. Unclear if it is effective. Continue to monitor. Coronary artery disease with drug-eluting stent. He was told that clopidogrel would continue for 1 year, and after that he would be on aspirin alone. Discussed with Dr. Ba, Cardiology, 12/06/2018. Would not restart clopidogrel. Timing of resuming aspirin should be per Neurology. Would dose aspirin at 81 mg QD. Ventricular bigeminy on EKG 12/05/2018. Asymptomatic, with normal BMP, BNP and Mg on 12/06/2018. D/W Cardiology, Dr. Ba. No indication for intervention or change in treatment plan. Dyslipidemia. Continue atorvastatin. BPH. Continue finasteride. Irregular heart beat. He was in normal sinus rhythm on EKG at the emergency department at [place], and apparently there were no dysrhythmias seen on telemonitoring. Son reports that he had frequent PVCs. We will obtain EKG to assess current cardiac rhythm. Prophylaxis. Mobility is much improved. Discontinue heparin, 12/08/2018. DISPOSITION: Attended staffing, 12/08/2018. Discussed with case management, nursing, PT, OT, LINE ERECTOR APPRENTICE. Lives at home with his who is scheduled for knee surgery soon. Has assistance from son who is a plastic technician in [place]. Son and daughter from out of town will also be available to help. Goal to be at supervision level for mobility and ADLs. Tentative discharge date set for 12/13/2018. FOLLOWUP: Hospital discharge paperwork recommend followup with [facility], Dr. Vazquez, approximately 10 days after hospital discharge (12/15/2018 ) to consider resuming antiplatelet agents. His family may choose to do their followup with the local [facility] [facility]. His primary rivet machine operator is Dr. Montana, and his primary care physician is Dr. Aleksandra Ovalle. 12/08/18 10:28 Subjective: Had difficulty attaining sleep last night. Otherwise without complaints. Not in pain. No cough or dyspnea, no fevers or chills. He says his is pending him a book as it is his usual habit to read before falling asleep at night. Objective: Vital Signs Temp Pulse Resp BP Pulse Ox 36.4 C 47 L 16 129/78 H 95 12/08/18 06:43 12/08/18 06:43 12/08/18 06:43 12/08/18 08:26 12/08/18 06:43 Laboratory Results 12/06/18 06:10 12/07/18 12/08/18 12/09/18 05:59 05:59 05:59 Intake Total 300 640 Output Total 300 Balance 300 340 - Time Spent With Patient Time Spent With Patient: Greater than 35 min floor time today, including more than 50% of time in coordination of care during staffing, and counseling patient. Physical Exam - Physical Exam General Appearance: WD/WN, alert, no apparent distress Respiratory: normal breath sounds, No crackles, No rhonchi, No wheezing Cardiac/Chest: regular rate, rhythm, No edema, No diastolic murmur, No systolic murmur Skin: normal color, warm/dry Extremities: No calf tenderness Neuro/Psych: alert, normal mood/affect, oriented x 3, abnormal gait (Ambulating with PT using a walking staff in left hand. Mildly unsteady.), facial droop ( Right) ICD10 Worksheet Patient Problems: Problems Problem Status Onset Facial droop Acute Hemorrhagic stroke Acute
--- NOTE | 2018-12-08 14:40 | CPEKG ---
Test Reason : OPEN Blood Pressure : / mmHG Vent. Rate : 081 BPM Atrial Rate : 071 BPM P-R Int : 172 ms QRS Dur : 088 ms QT Int : 308 ms P-R-T Axes : 084 079 228 degrees QTc Int : 275 ms SINUS RHYTHM VENTRICULAR BIGEMINY NONSPECIFIC T ABNORMALITIES, DIFFUSE LEADS Confirmed by Slick Montana ([id number]) on 12/08/2018 2:39:38 PM Referred By: Papo Narayanan Confirmed By:Slick Montana
[2018-12-08] MEDS: traZODone 50 MG TAB PO SCH (21:27)
[2018-12-09] MEDS: FINASTERIDE 5 MG TAB PO SCH (08:01)
[2018-12-09] MEDS: ATORVASTATIN CALCIUM 40 MG TAB PO SCH (08:01)
[2018-12-09] MEDS: HYDROCHLOROTHIAZIDE 25 MG TAB PO SCH (08:02)
[2018-12-09] MEDS: amLODIPine BESYLATE 5 MG TAB PO SCH ×2 (08:03→21:01)
[2018-12-09] MEDS: IRBESARTAN 150 MG TAB PO SCH (08:03)
--- NOTE | 2018-12-09 11:53 | HOSPPROG ---
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 * Initial functional independence measure is 83 on 12/08/2018. Contact guard to standby assistance for transfers. Ambulated 150 ft with contact guard assist and front wheeled walker. Has loss of balance to the right if he is not attending. Grooming and hygiene were done standing with contact guard to close standby assist. Upper body dressing required setup and standby assist. Lower body dressing was standby assist except for donning socks for which she needed minimal assist. Bath transfer was done with contact guard assist, bathing with setup/standby assist. Toileting required contact guard assist for studying. * Continue PT and OT to optimize his function towards discharge home at the independent to modified independent level. Dysarthria and left facial droop and subjective difficulty with swallowing. * Has right labial/lingual/pupil muscle weakness and occasional leakage from the labial seal. Has mild dysarthria. * Continue Speech and Language Pathology. Impairment to higher level cognitive skills including organization and reasoning noted by SILVERWARE ASSEMBLER. Hypertension. Amlodipine has been increased from 5 mg daily to 5 mg twice daily. He is continuing his home dose of irbesartan/hydrochlorothiazide of 300/ 12.5 mg daily. * Not orthostatic. * Adequate control. Insomnia. Was over-sedated in the morning after trazodone 50 mg at HS starting 12/06/2018. Dose has been decreased to 25 mg. Unclear if it is effective. Continue to monitor. Coronary artery disease with drug-eluting stent. He was told that clopidogrel would continue for 1 year, and after that he would be on aspirin alone. Discussed with Dr. Ba, Cardiology, 12/06/2018. Would not restart clopidogrel. Timing of resuming aspirin should be per Neurology. Would dose aspirin at 81 mg QD. Ventricular bigeminy on EKG 12/05/2018. Asymptomatic, with normal BMP, BNP and Mg on 12/06/2018. D/W Cardiology, Dr. Ba. No indication for intervention or change in treatment plan. Dyslipidemia. Continue atorvastatin. BPH. Continue finasteride. Irregular heart beat. He was in normal sinus rhythm on EKG at the emergency department at [facility], and apparently there were no dysrhythmias seen on telemonitoring. Son reports that he had frequent PVCs. We will obtain EKG to assess current cardiac rhythm. Prophylaxis. Mobility is much improved. Discontinue heparin, 12/08/2018. DISPOSITION: Attended staffing, 12/08/2018. Discussed with case management, nursing, PT, OT, SILVERWARE ASSEMBLER. Lives at home with his who is scheduled for knee surgery soon. Has assistance from son who is a auto mechanic in [place]. Son and daughter from out of town will also be available to help. Goal to be at supervision level for mobility and ADLs. Tentative discharge date set for 12/13/2018. FOLLOWUP: Hospital discharge paperwork recommend followup with [facility], Dr. Vazquez, approximately 10 days after hospital discharge (12/15/2018 ) to consider resuming antiplatelet agents. His family may choose to do their followup with the local [facility]. His primary surgical services tech is Dr. Montana, and his primary care physician is Dr. Aleksandra Ovalle. Subjective: no new complaitns Objective: Vital Signs Temp Pulse Resp BP Pulse Ox 36.3 C 68 16 121/68 H 93 12/09/18 07:53 12/09/18 07:53 12/09/18 07:53 12/09/18 08:03 12/09/18 07:53 Laboratory Results 12/06/18 06:10 12/08/18 12/09/18 12/10/18 05:59 05:59 05:59 Intake Total 640 2790 360 Output Total 300 Balance 340 2790 360 - Physical Exam Constitutional: no apparent distress, appears nourished, not in pain Eyes: anicteric sclera, EOMI Ears, Nose, Mouth, Throat: moist mucous membranes Cardiovascular: regular rate and rhythym Respiratory: no respiratory distress, no rales or rhonchi, clear to auscultation Skin: warm Neurologic: AAOx3 Psychiatric: interacting appropriately, not anxious, not encephalopathic, thought process linear ICD10 Worksheet Patient Problems: Problems Problem Status Onset Facial droop Acute Hemorrhagic stroke Acute
[2018-12-09] MEDS: traZODone 50 MG TAB PO SCH (21:01)
[2018-12-10] MEDS: IRBESARTAN 150 MG TAB PO SCH (08:16)
[2018-12-10] MEDS: amLODIPine BESYLATE 5 MG TAB PO SCH ×2 (08:16→21:13)
[2018-12-10] MEDS: FINASTERIDE 5 MG TAB PO SCH (08:16)
[2018-12-10] MEDS: ATORVASTATIN CALCIUM 40 MG TAB PO SCH (08:16)
[2018-12-10] MEDS: HYDROCHLOROTHIAZIDE 25 MG TAB PO SCH (08:16)
--- NOTE | 2018-12-10 12:19 | HOSPPROG ---
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 * Initial functional independence measure is 83 on 12/08/2018. Contact guard to standby assistance for transfers. Ambulated 150 ft with contact guard assist and front wheeled walker. Has loss of balance to the right if he is not attending. Grooming and hygiene were done standing with contact guard to close standby assist. Upper body dressing required setup and standby assist. Lower body dressing was standby assist except for donning socks for which she needed minimal assist. Bath transfer was done with contact guard assist, bathing with setup/standby assist. Toileting required contact guard assist for studying. * Continue PT and OT to optimize his function towards discharge home at the independent to modified independent level. Dysarthria and left facial droop and subjective difficulty with swallowing. * Has right labial/lingual/pupil muscle weakness and occasional leakage from the labial seal. Has mild dysarthria. * Continue Speech and Language Pathology. Impairment to higher level cognitive skills including organization and reasoning noted by FIBERGLASS MACHINE OPERATOR. Hypertension. Amlodipine has been increased from 5 mg daily to 5 mg twice daily. He is continuing his home dose of irbesartan/hydrochlorothiazide of 300/ 12.5 mg daily. * Not orthostatic. * Adequate control. Insomnia. Was over-sedated in the morning after trazodone 50 mg at HS starting 12/06/2018. Dose has been decreased to 25 mg. Unclear if it is effective. Continue to monitor. Coronary artery disease with drug-eluting stent. He was told that clopidogrel would continue for 1 year, and after that he would be on aspirin alone. Discussed with Dr. Ba, Cardiology, 12/06/2018. Would not restart clopidogrel. Timing of resuming aspirin should be per Neurology. Would dose aspirin at 81 mg QD. Ventricular bigeminy on EKG 12/05/2018. Asymptomatic, with normal BMP, BNP and Mg on 12/06/2018. D/W Cardiology, Dr. Ba. No indication for intervention or change in treatment plan. Dyslipidemia. Continue atorvastatin. BPH. Continue finasteride. Irregular heart beat. He was in normal sinus rhythm on EKG at the emergency department at [facility], and apparently there were no dysrhythmias seen on telemonitoring. Son reports that he had frequent PVCs. We will obtain EKG to assess current cardiac rhythm. Prophylaxis. Mobility is much improved. Discontinue heparin, 12/08/2018. DISPOSITION: Attended staffing, 12/08/2018. Discussed with case management, nursing, PT, OT, FIBERGLASS MACHINE OPERATOR. Lives at home with his who is scheduled for knee surgery soon. Has assistance from son who is a folder tier in [place]. Son and daughter from out of town will also be available to help. Goal to be at supervision level for mobility and ADLs. Tentative discharge date set for 12/13/2018. FOLLOWUP: Hospital discharge paperwork recommend followup with [facility], Dr. Vazquez, approximately 10 days after hospital discharge (12/15/2018 ) to consider resuming antiplatelet agents. His family may choose to do their followup with the local [facility]. His primary annealing furnace operator is Dr. Montana, and his primary care physician is Dr. Aleksandra Ovalle. Subjective: no new complaints Objective: Vital Signs Temp Pulse Resp BP Pulse Ox 36.6 C 69 12 129/79 H 93 12/10/18 07:12 12/10/18 07:12 12/10/18 07:12 12/10/18 08:16 12/10/18 07:12 Laboratory Results 12/06/18 06:10 12/09/18 12/10/18 12/11/18 05:59 05:59 05:59 Intake Total 2790 1260 240 Output Total 1 Balance 2790 1259 240 - Physical Exam Constitutional: no apparent distress, appears nourished, not in pain Eyes: anicteric sclera, EOMI Ears, Nose, Mouth, Throat: moist mucous membranes Cardiovascular: regular rate and rhythym Respiratory: no respiratory distress Skin: warm Neurologic: AAOx3 Psychiatric: interacting appropriately, not anxious, not encephalopathic, thought process linear ICD10 Worksheet Patient Problems: Problems Problem Status Onset Facial droop Acute Hemorrhagic stroke Acute
[2018-12-10] MEDS: traZODone 50 MG TAB PO SCH (21:13)
[2018-12-11] MEDS: amLODIPine BESYLATE 5 MG TAB PO SCH ×2 (08:54→20:58)
[2018-12-11] MEDS: ATORVASTATIN CALCIUM 40 MG TAB PO SCH (08:55)
[2018-12-11] MEDS: HYDROCHLOROTHIAZIDE 25 MG TAB PO SCH (08:56)
[2018-12-11] MEDS: FINASTERIDE 5 MG TAB PO SCH (08:56)
[2018-12-11] MEDS: IRBESARTAN 150 MG TAB PO SCH (08:57)
--- NOTE | 2018-12-11 09:48 | SOAPPROG ---
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 * Initial functional independence measure is 83 on 12/08/2018. Contact guard to standby assistance for transfers. Ambulated 150 ft with contact guard assist and front wheeled walker. Has loss of balance to the right if he is not attending. Grooming and hygiene were done standing with contact guard to close standby assist. Upper body dressing required setup and standby assist. Lower body dressing was standby assist except for donning socks for which she needed minimal assist. Bath transfer was done with contact guard assist, bathing with setup/standby assist. Toileting required contact guard assist for studying. * Continue PT and OT to optimize his function towards discharge home at the independent to modified independent level. Dysarthria and left facial droop and subjective difficulty with swallowing. * Has right labial/lingual/pupil muscle weakness and occasional leakage from the labial seal. Has mild dysarthria. * Continue Speech and Language Pathology. Impairment to higher level cognitive skills including organization and reasoning noted by JORDAN MAN. Hypertension. Amlodipine has been increased from 5 mg daily to 5 mg twice daily. He is continuing his home dose of irbesartan/hydrochlorothiazide of 300/ 12.5 mg daily. * Not orthostatic. * Adequate control. Insomnia. Was over-sedated in the morning after trazodone 50 mg at HS starting 12/06/2018. * Sleeping better with trazodone 25 mg at HS. Has concerns about sleep apnea. Should have sleep study as an outpatient after discharge. Coronary artery disease with drug-eluting stent. He was told that clopidogrel would continue for 1 year, and after that he would be on aspirin alone. Discussed with Dr. Ba, Cardiology, 12/06/2018. Would not restart clopidogrel. Timing of resuming aspirin should be per Neurology. Would dose aspirin at 81 mg QD. Ventricular bigeminy on EKG 12/05/2018. Asymptomatic, with normal BMP, BNP and Mg on 12/06/2018. D/W Cardiology, Dr. Ba. No indication for intervention or change in treatment plan. Dyslipidemia. Continue atorvastatin. BPH. Continue finasteride. Prophylaxis. Mobility is much improved. Discontinue heparin, 12/08/2018. DISPOSITION: Lives at home with his who is scheduled for knee surgery soon. Has assistance from son who is a hog confinement system manager in [place]. Son and daughter from out of town will also be available to help. Goal to be at supervision level for mobility and ADLs. Tentative discharge date set for 2018. FOLLOWUP: Hospital discharge paperwork recommend followup with [facility], Dr. Vazquez, approximately 10 days after hospital discharge (12/15/2018 ) to consider resuming antiplatelet agents. His family may choose to do their followup with the local [facility]. His primary safety teacher is Dr. Montana, and his primary care physician is Dr. Aleksandra Ovalle. 12/11/18 09:42 Subjective: Not sure he will be ready to go home on Tuesday. He reports his legs feel weak when he 1st gets up in the morning. His sleep last night was okay. He says he snores and he thinks he has sleep apnea, and several awakenings through the night. Otherwise without complaints. Objective: Vital Signs Temp Pulse Resp BP Pulse Ox 36.4 C 53 L 18 129/72 H 93 12/11/18 08:00 12/11/18 08:00 12/11/18 08:00 12/11/18 08:00 12/11/18 08:00 Laboratory Results 12/06/18 06:10 12/10/18 12/11/18 12/12/18 05:59 05:59 05:59 Intake Total 1260 780 550 Output Total 1 Balance 1259 780 550 Physical Exam - Physical Exam General Appearance: WD/WN, alert, no apparent distress Respiratory: normal breath sounds, No crackles, No rhonchi, No wheezing Cardiac/Chest: regular rate, rhythm, No diastolic murmur, No systolic murmur Skin: normal color, warm/dry Neuro/Psych: alert, normal mood/affect, oriented x 3, facial droop (Right) ICD10 Worksheet Patient Problems: Problems Problem Status Onset Facial droop Acute Hemorrhagic stroke Acute
[2018-12-11] MEDS: traZODone 50 MG TAB PO SCH (20:59)
[2018-12-12] MEDS: FINASTERIDE 5 MG TAB PO SCH (08:01)
[2018-12-12] MEDS: HYDROCHLOROTHIAZIDE 25 MG TAB PO SCH (08:01)
[2018-12-12] MEDS: ATORVASTATIN CALCIUM 40 MG TAB PO SCH (08:01)
[2018-12-12] MEDS: amLODIPine BESYLATE 5 MG TAB PO SCH (08:01)
[2018-12-12] MEDS: IRBESARTAN 150 MG TAB PO SCH (08:01)
--- NOTE | 2018-12-12 15:05 | SOAPPROG ---
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 * Initial functional independence measure is 83 on 12/08/2018. Contact guard to standby assistance for transfers. Ambulated 150 ft with contact guard assist and front wheeled walker. Has loss of balance to the right if he is not attending. Grooming and hygiene were done standing with contact guard to close standby assist. Upper body dressing required setup and standby assist. Lower body dressing was standby assist except for donning socks for which she needed minimal assist. Bath transfer was done with contact guard assist, bathing with setup/standby assist. Toileting required contact guard assist for studying. * Continue PT and OT to optimize his function towards discharge home at the independent to modified independent level. Dysarthria and left facial droop and subjective difficulty with swallowing. * Has right labial/lingual/pupil muscle weakness and occasional leakage from the labial seal. Has mild dysarthria. * Continue Speech and Language Pathology. Impairment to higher level cognitive skills including organization and reasoning noted by CHILD CARE CENTRE MANAGER. Hypertension. Amlodipine has been increased from 5 mg daily to 5 mg twice daily. He is continuing his home dose of irbesartan/hydrochlorothiazide of 300/ 12.5 mg daily. * Not orthostatic. * Adequate control. * Due to ankle edema, will reduce amlodipine from 5 mg twice daily to 5 mg q.day , and increase hydrochlorothiazide from 12.5 mg q.day to 25 mg q.day, starting . Check BMP 12/15/2018. Insomnia. Was over-sedated in the morning after trazodone 50 mg at HS starting 12/06/2018. * Sleeping better with trazodone 25 mg at HS. Has concerns about sleep apnea. Should have sleep study as an outpatient after discharge. Coronary artery disease with drug-eluting stent. He was told that clopidogrel would continue for 1 year, and after that he would be on aspirin alone. Discussed with Dr. Ba, Cardiology, 12/06/2018. Would not restart clopidogrel. Timing of resuming aspirin should be per Neurology. Would dose aspirin at 81 mg QD. Ventricular bigeminy on EKG 12/05/2018. Asymptomatic, with normal BMP, BNP and Mg on 12/06/2018. D/W Cardiology, Dr. Ba. No indication for intervention or change in treatment plan. Dyslipidemia. Continue atorvastatin. BPH. Continue finasteride. Prophylaxis. Mobility is much improved. Discontinued heparin, 12/08/2018. DISPOSITION: Lives at home with his who is scheduled for knee surgery soon. Has assistance from son who is a painting technician in [place]. Son and daughter from out of town will also be available to help. Goal to be at supervision level for mobility and ADLs. Tentative discharge date set for 2018. FOLLOWUP: Hospital discharge paperwork recommend followup with [facility], Dr. Vazquez, approximately 10 days after hospital discharge (12/15/2018 ) to consider resuming antiplatelet agents. His family may choose to do their followup with the local [facility]. His primary data analytics architect is Dr. Montana, and his primary care physician is Dr. Aleksandra Ovalle. 12/12/18 15:02 Subjective: No complaints. Sleep is at baseline. Not in pain. No cough or dyspnea, no fevers or chills. Objective: Vital Signs Temp Pulse Resp BP Pulse Ox 36.6 C 72 16 138/80 H 93 12/12/18 05:48 12/12/18 05:48 12/12/18 05:48 12/12/18 05:48 12/12/18 05:48 Laboratory Results 12/06/18 06:10 12/11/18 12/12/18 12/13/18 05:59 05:59 05:59 Intake Total 780 1740 600 Balance 780 1740 600 Physical Exam - Physical Exam General Appearance: WD/WN, alert, no apparent distress Respiratory: normal breath sounds, No crackles, No rhonchi, No wheezing Cardiac/Chest: regular rate, rhythm, edema (1 to 2+ bilateral ankles), No diastolic murmur, No systolic murmur Skin: normal color, warm/dry Neuro/Psych: alert, normal mood/affect, oriented x 3, other (Reduced coordination right upper extremity) ICD10 Worksheet Patient Problems: Problems Problem Status Onset Facial droop Acute Hemorrhagic stroke Acute
[2018-12-12] MEDS: traZODone 50 MG TAB PO SCH (20:25)
[2018-12-13] MEDS: IRBESARTAN 150 MG TAB PO SCH (08:29)
[2018-12-13] MEDS: HYDROCHLOROTHIAZIDE 25 MG TAB PO SCH (08:29)
[2018-12-13] MEDS: ATORVASTATIN CALCIUM 40 MG TAB PO SCH (08:30)
[2018-12-13] MEDS: amLODIPine BESYLATE 5 MG TAB PO SCH (08:30)
[2018-12-13] MEDS: FINASTERIDE 5 MG TAB PO SCH (08:30)
--- NOTE | 2018-12-13 10:53 | SOAPPROG ---
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 * Initial functional independence measure is 83 on 12/08/2018, improved to 103 on 12/13/2017. He has ambulated 650 ft using a trekking pole. He needs supervision especially as he develops fatigue. He has a right exam oral with path finding issues regarding objects on his right side. He has difficulties with sequencing and repair with his right upper and lower extremities. He has loss of balance at times. Standby assist level for ADLs but contact guard assist for mobility with ADLs. Due to fall risk, not yet ready to progressed to independent. * Continue PT and OT to optimize his function towards discharge home at the independent to modified independent level. Dysarthria and left facial droop and subjective difficulty with swallowing. * Has right labial/lingual/pupil muscle weakness and occasional leakage from the labial seal. Has mild dysarthria. * Improving with an NMES. * Mildly decreased executive function. * Continue Speech and Language Pathology. Hypertension. Amlodipine has been increased from 5 mg daily to 5 mg twice daily. He is continuing his home dose of irbesartan/hydrochlorothiazide of 300/ 12.5 mg daily. * Not orthostatic. * Adequate control. * Due to ankle edema, reduced e amlodipine from 5 mg twice daily to 5 mg q.day, and increased hydrochlorothiazide from 12.5 mg q.day to 25 mg q.day, starting . Check BMP 12/17/2018. Insomnia. Was over-sedated in the morning after trazodone 50 mg at HS starting 12/06/2018. * Sleeping better with trazodone 25 mg at HS. Has concerns about sleep apnea. Should have sleep study as an outpatient after discharge. Coronary artery disease with drug-eluting stent. He was told that clopidogrel would continue for 1 year, and after that he would be on aspirin alone. Discussed with Dr. Ba, Cardiology, 12/06/2018. Would not restart clopidogrel. Timing of resuming aspirin should be per Neurology. Would dose aspirin at 81 mg QD. Ventricular bigeminy on EKG 12/05/2018. Asymptomatic, with normal BMP, BNP and Mg on 12/06/2018. D/W Cardiology, Dr. aB. No indication for intervention or change in treatment plan. * Irregular rhythm has resolved. Dyslipidemia. Continue atorvastatin. BPH. Continue finasteride. Prophylaxis. Mobility is much improved. Discontinued heparin, 12/08/2018. DISPOSITION: Attended staffing, 15 min, 12/13/2018. Discussed with case management, nursing, dietitian, PT, OT, HR LEADER. Lives at home with his who has had recent knee surgery. Has assistance from son who is a home health attendant in [place]. Son and daughter from out of town will also be available to help. Goal to be at supervision level for mobility and ADLs. Tentative discharge date set for 12/18/2018. FOLLOWUP: Hospital discharge paperwork recommend followup with [facility], Dr. Vazquez, approximately 10 days after hospital discharge (12/15/2018 ) to consider resuming antiplatelet agents. His family may choose to do their followup with the local [facility]. His primary automatic trimming sewer is Dr. Montana, and his primary care physician is Dr. Aleksandra Ovalle. 12/13/18 10:45 Subjective: No complaints. Slept okay. Not in pain. Objective: Vital Signs Temp Pulse Resp BP Pulse Ox 36.4 C 68 16 146/82 H 93 12/13/18 07:18 12/13/18 07:18 12/13/18 07:18 12/13/18 07:18 12/13/18 07:18 Laboratory Results 12/06/18 06:10 12/12/18 12/13/18 12/14/18 05:59 05:59 05:59 Intake Total 1740 1380 480 Balance 1740 1380 480 - Time Spent With Patient Time Spent With Patient: Greater than 35 min floor time today, including more than 50% of time in coordination of care during staffing meeting, and counseling patient. Physical Exam - Physical Exam General Appearance: WD/WN, alert, no apparent distress Respiratory: normal breath sounds, No crackles, No rhonchi, No wheezing Cardiac/Chest: regular rate, rhythm, edema (Trace bilateral ankles), No diastolic murmur, No systolic murmur Skin: normal color, warm/dry Neuro/Psych: alert, normal mood/affect, oriented x 3 ICD10 Worksheet Patient Problems: Problems Problem Status Onset Facial droop Acute Hemorrhagic stroke Acute
[2018-12-13] MEDS: traZODone 50 MG TAB PO SCH (20:55)
[2018-12-14] MEDS: IRBESARTAN 150 MG TAB PO SCH (08:09)
[2018-12-14] MEDS: amLODIPine BESYLATE 5 MG TAB PO SCH (08:09)
[2018-12-14] MEDS: HYDROCHLOROTHIAZIDE 25 MG TAB PO SCH (08:09)
[2018-12-14] MEDS: ATORVASTATIN CALCIUM 40 MG TAB PO SCH (08:10)
[2018-12-14] MEDS: FINASTERIDE 5 MG TAB PO SCH (08:10)
--- NOTE | 2018-12-14 12:01 | SOAPPROG ---
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 * Initial functional independence measure is 83 on 12/08/2018, improved to 103 on 12/13/2017. He has ambulated 650 ft using a trekking pole. He needs supervision especially as he develops fatigue. He has a right exam oral with path finding issues regarding objects on his right side. He has difficulties with sequencing and repair with his right upper and lower extremities. He has loss of balance at times. Standby assist level for ADLs but contact guard assist for mobility with ADLs. Due to fall risk, not yet ready to progressed to independent. * Continue PT and OT to optimize his function towards discharge home at the independent to modified independent level. Dysarthria, left facial droop and subjective difficulty with swallowing. * Has right labial/lingual/pupil muscle weakness and occasional leakage from the labial seal. Has mild dysarthria. * Improving with an NMES. * Mildly decreased executive function. * Continue Speech and Language Pathology. Hypertension. Amlodipine has been increased from 5 mg daily to 5 mg twice daily. He is continuing his home dose of irbesartan/hydrochlorothiazide of 300/ 12.5 mg daily. * Not orthostatic. * Adequate control. * Due to ankle edema, reduced e amlodipine from 5 mg twice daily to 5 mg q.day, and increased hydrochlorothiazide from 12.5 mg q.day to 25 mg q.day, starting . Check BMP 12/17/2018. * Blood pressure slightly above target, 12/14/2018. If he continues to run higher than 140/90, would increase amlodipine from 5 mg daily to 7.5 mg daily. Insomnia. Was over-sedated in the morning after trazodone 50 mg at HS starting 12/06/2018. * Sleeping better with trazodone 25 mg at HS. Has concerns about sleep apnea. Should have sleep study as an outpatient after discharge. Coronary artery disease with drug-eluting stent. He was told that clopidogrel would continue for 1 year, and after that he would be on aspirin alone. Discussed with Dr. Ba, Cardiology, 12/06/2018. Would not restart clopidogrel. Timing of resuming aspirin should be per Neurology. Would dose aspirin at 81 mg QD. Ventricular bigeminy on EKG 12/05/2018. Asymptomatic, with normal BMP, BNP and Mg on 12/06/2018. D/W Cardiology, Dr. Ba. No indication for intervention or change in treatment plan. * Irregular rhythm has resolved. Dyslipidemia. Continue atorvastatin. BPH. Continue finasteride. Prophylaxis. Mobility is much improved. Discontinued heparin, 12/08/2018. DISPOSITION: Attended staffing, 15 min, 12/13/2018. Discussed with case management, nursing, dietitian, PT, OT, [employer]. Lives at home with his who has had recent knee surgery. Has assistance from son who is a sap administrator in [place]. Son and daughter from out of town will also be available to help. Goal to be at supervision level for mobility and ADLs. Tentative discharge date set for 12/18/2018. FOLLOWUP: Hospital discharge paperwork recommend followup with [facility], Dr. Vazquez, approximately 10 days after hospital discharge (12/15/2018 ) to consider resuming antiplatelet agents. His family may choose to do their followup with the local [facility]. His primary process design engineer is Dr. Montana, and his primary care physician is Dr. Aleksandra Ovalle. 12/14/18 12:00 Subjective: No complaints. Sleeps okay. Not in pain. No cough or dyspnea, no fevers or chills. Objective: Vital Signs Temp Pulse Resp BP Pulse Ox 36.5 C 69 16 140/85 H 93 12/14/18 07:36 12/14/18 07:36 12/14/18 07:36 12/14/18 07:36 12/14/18 07:36 Laboratory Results 12/06/18 06:10 12/13/18 12/14/18 12/15/18 05:59 05:59 05:59 Intake Total 1380 1160 Balance 1380 1160 Physical Exam - Physical Exam General Appearance: WD/WN, alert, no apparent distress Respiratory: No respiratory distress, No accessory muscle use Skin: normal color, warm/dry Neuro/Psych: alert, normal mood/affect, oriented x 3, abnormal gait (Practicing stepping over a threshold with forward and backward steps with physical therapy with trekking pole in the left hand. Has loss of balance to the right.) ICD10 Worksheet Patient Problems: Problems Problem Status Onset Facial droop Acute Hemorrhagic stroke Acute
[2018-12-14] MEDS: traZODone 50 MG TAB PO SCH (20:40)
[2018-12-15] MEDS: amLODIPine BESYLATE 5 MG TAB PO SCH (08:14)
[2018-12-15] MEDS: ASPIRIN EC 81 MG TAB PO SCH (08:15)
[2018-12-15] MEDS: ATORVASTATIN CALCIUM 40 MG TAB PO SCH (08:16)
[2018-12-15] MEDS: FINASTERIDE 5 MG TAB PO SCH (08:17)
[2018-12-15] MEDS: IRBESARTAN 150 MG TAB PO SCH (08:18)
[2018-12-15] MEDS: HYDROCHLOROTHIAZIDE 25 MG TAB PO SCH (08:18)
--- NOTE | 2018-12-15 11:39 | HOSPPROG ---
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 * Initial functional independence measure is 83 on 12/08/2018, improved to 103 on 12/13/2017. He has ambulated 650 ft using a trekking pole. He needs supervision especially as he develops fatigue. He has a right exam oral with path finding issues regarding objects on his right side. He has difficulties with sequencing and repair with his right upper and lower extremities. He has loss of balance at times. Standby assist level for ADLs but contact guard assist for mobility with ADLs. Due to fall risk, not yet ready to progressed to independent. * Continue PT and OT to optimize his function towards discharge home at the independent to modified independent level. Dysarthria, left facial droop and subjective difficulty with swallowing. * Has right labial/lingual/pupil muscle weakness and occasional leakage from the labial seal. Has mild dysarthria. * Improving with an NMES. * Mildly decreased executive function. * Continue Speech and Language Pathology. Hypertension. Amlodipine has been increased from 5 mg daily to 5 mg twice daily. He is continuing his home dose of irbesartan/hydrochlorothiazide of 300/ 12.5 mg daily. * Not orthostatic. * Adequate control. * Due to ankle edema, reduced e amlodipine from 5 mg twice daily to 5 mg q.day, and increased hydrochlorothiazide from 12.5 mg q.day to 25 mg q.day, starting . Check BMP 12/17/2018. * Blood pressure slightly above target, 12/14/2018. If he continues to run higher than 140/90, would increase amlodipine from 5 mg daily to 7.5 mg daily. Insomnia. Was over-sedated in the morning after trazodone 50 mg at HS starting 12/06/2018. * Sleeping better with trazodone 25 mg at HS. Has concerns about sleep apnea. Should have sleep study as an outpatient after discharge. Coronary artery disease with drug-eluting stent. He was told that clopidogrel would continue for 1 year, and after that he would be on aspirin alone. Discussed with Dr. Ba, Cardiology, 12/06/2018. Would not restart clopidogrel. Timing of resuming aspirin should be per Neurology. Would dose aspirin at 81 mg QD. Ventricular bigeminy on EKG 12/05/2018. Asymptomatic, with normal BMP, BNP and Mg on 12/06/2018. D/W Cardiology, Dr. Ba. No indication for intervention or change in treatment plan. * Irregular rhythm has resolved. * 12/15 - sounds like he may be in bigeminy today Dyslipidemia. Continue atorvastatin. BPH. Continue finasteride. Prophylaxis. Mobility is much improved. Discontinued heparin, 12/08/2018. Subjective: ahd an episode of worse aphasia after being awoken by son while taking a nap - resolved after a few minutes. otherwise no new complaints Objective: Vital Signs Temp Pulse Resp BP Pulse Ox 36.8 C 64 93 H 132/73 H 94 12/15/18 06:42 12/15/18 08:09 12/15/18 08:09 12/15/18 08:09 12/15/18 06:42 Laboratory Results 12/06/18 06:10 12/14/18 12/15/18 12/16/18 05:59 05:59 05:59 Intake Total 1160 1480 650 Balance 1160 1480 650 - Physical Exam Constitutional: no apparent distress, appears nourished, not in pain Eyes: anicteric sclera, EOMI Ears, Nose, Mouth, Throat: moist mucous membranes Cardiovascular: regular rate and rhythym Respiratory: no respiratory distress, no rales or rhonchi, clear to auscultation Skin: warm Neurologic: AAOx3 Psychiatric: interacting appropriately, not anxious, not encephalopathic, thought process linear ICD10 Worksheet Patient Problems: Problems Problem Status Onset Facial droop Acute Hemorrhagic stroke Acute
[2018-12-15] MEDS: traZODone 50 MG TAB PO SCH (22:09)
[2018-12-16] MEDS: ASPIRIN EC 81 MG TAB PO SCH (08:21)
[2018-12-16] MEDS: amLODIPine BESYLATE 5 MG TAB PO SCH (08:21)
[2018-12-16] MEDS: ATORVASTATIN CALCIUM 40 MG TAB PO SCH (08:22)
[2018-12-16] MEDS: HYDROCHLOROTHIAZIDE 25 MG TAB PO SCH (08:23)
[2018-12-16] MEDS: FINASTERIDE 5 MG TAB PO SCH (08:23)
[2018-12-16] MEDS: IRBESARTAN 150 MG TAB PO SCH (08:23)
--- NOTE | 2018-12-16 10:34 | SOAPPROG ---
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 * Initial functional independence measure is 83 on 12/08/2018, improved to 103 on 12/13/2017. He has ambulated 650 ft using a trekking pole. He needs supervision especially as he develops fatigue. He has a right exam oral with path finding issues regarding objects on his right side. He has difficulties with sequencing and repair with his right upper and lower extremities. He has loss of balance at times. Standby assist level for ADLs but contact guard assist for mobility with ADLs. Due to fall risk, not yet ready to progressed to independent. * Continue PT and OT to optimize his function towards discharge home at the independent to modified independent level. Dysarthria, left facial droop and subjective difficulty with swallowing. * Has right labial/lingual/pupil muscle weakness and occasional leakage from the labial seal. Has mild dysarthria. * Improving with an NMES. * Mildly decreased executive function. * Continue Speech and Language Pathology. Hypertension. He is continuing his home dose of irbesartan/hydrochlorothiazide of 300/12.5 mg daily. * Not orthostatic. * Due to ankle edema, reduced e amlodipine from 5 mg twice daily to 5 mg q.day, and increased hydrochlorothiazide from 12.5 mg q.day to 25 mg q.day, starting . Check BMP 12/17/2018. * Blood pressure slightly above target, 12/14/2018. Will increase amlodipine to 7.5 mg/day on 12/16 Insomnia. Was over-sedated in the morning after trazodone 50 mg at HS starting 12/06/2018. * Sleeping better with trazodone 25 mg at HS. Has concerns about sleep apnea. Should have sleep study as an outpatient after discharge. Coronary artery disease with drug-eluting stent. He was told that clopidogrel would continue for 1 year, and after that he would be on aspirin alone. Discussed with Dr. Ba, Cardiology, 12/06/2018. Would not restart clopidogrel. Timing of resuming aspirin should be per Neurology. Would dose aspirin at 81 mg QD. Ventricular bigeminy on EKG 12/05/2018. Asymptomatic, with normal BMP, BNP and Mg on 12/06/2018. D/W Cardiology, Dr. Ba. No indication for intervention or change in treatment plan. * Irregular rhythm has resolved. * 12/15 - sounds like he may be in bigeminy today Dyslipidemia. Continue atorvastatin. BPH. Continue finasteride. Prophylaxis. Mobility is much improved. Discontinued heparin, 12/08/2018. Follow up: PCP Cardiology Neurology 12/16/18 10:31 Subjective: Slept ok last night but not much different than while at home. Overall feeling a little more confident everyday. No new neurologic concerns. Good bowel/ bladder management. no fevers/chills Objective: Vital Signs Temp Pulse Resp BP Pulse Ox 98.1 F 66 18 146/81 H 91 L 12/16/18 07:46 12/16/18 07:46 12/16/18 07:46 12/16/18 07:46 12/16/18 07:46 Laboratory Results 12/06/18 06:10 12/15/18 12/16/18 12/17/18 05:59 05:59 05:59 Intake Total 1480 1485 450 Balance 1480 1485 450 Physical Exam - Physical Exam General Appearance: alert, no apparent distress Respiratory: lungs clear, normal breath sounds Cardiac/Chest: regular rate, rhythm, other (Trace to 1+ of the bilateral LE near the ankle) Abdomen: non-tender, soft Skin: normal color Neuro/Psych: alert, other (Flat affect) ICD10 Worksheet Patient Problems: Problems Problem Status Onset Facial droop Acute Hemorrhagic stroke Acute
[2018-12-16] MEDS: traZODone 50 MG TAB PO SCH (20:56)
[2018-12-17] MEDS: ASPIRIN EC 81 MG TAB PO SCH (08:17)
[2018-12-17] MEDS: IRBESARTAN 150 MG TAB PO SCH (08:18)
[2018-12-17] MEDS: HYDROCHLOROTHIAZIDE 25 MG TAB PO SCH (08:18)
[2018-12-17] MEDS: FINASTERIDE 5 MG TAB PO SCH (08:18)
[2018-12-17] MEDS: ATORVASTATIN CALCIUM 40 MG TAB PO SCH (08:19)
[2018-12-17] MEDS ORDERED: amLODIPine BESYLATE 5 MG TAB PO SCH (09:00)
--- NOTE | 2018-12-17 10:05 | SOAPPROG ---
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 * Initial functional independence measure is 83 on 12/08/2018, improved to 103 on 12/13/2017. He has ambulated 650 ft using a trekking pole. He needs supervision especially as he develops fatigue. He has a right exam oral with path finding issues regarding objects on his right side. He has difficulties with sequencing and repair with his right upper and lower extremities. He has loss of balance at times. Standby assist level for ADLs but contact guard assist for mobility with ADLs. Due to fall risk, not yet ready to progressed to independent. * Continue PT and OT to optimize his function towards discharge home at the independent to modified independent level. Dysarthria, left facial droop and subjective difficulty with swallowing. * Has right labial/lingual/pupil muscle weakness and occasional leakage from the labial seal. Has mild dysarthria. * Improving with an NMES. * Mildly decreased executive function. * Continue Speech and Language Pathology. Hypertension. He is continuing his home dose of irbesartan/hydrochlorothiazide of 300/12.5 mg daily. * Not orthostatic. * Due to ankle edema, reduced e amlodipine from 5 mg twice daily to 5 mg q.day, and increased hydrochlorothiazide from 12.5 mg q.day to 25 mg q.day, starting . BMP normal on 12/17 * Blood pressure slightly above target, 12/14/2018. Will increase amlodipine to 7.5 mg/day on 12/16 Insomnia. Was over-sedated in the morning after trazodone 50 mg at HS starting 12/06/2018. * Sleeping better with trazodone 25 mg at HS. Has concerns about sleep apnea. Should have sleep study as an outpatient after discharge. Coronary artery disease with drug-eluting stent. He was told that clopidogrel would continue for 1 year, and after that he would be on aspirin alone. Discussed with Dr. Ba, Cardiology, 12/06/2018. Would not restart clopidogrel. Timing of resuming aspirin should be per Neurology. Would dose aspirin at 81 mg QD. Ventricular bigeminy on EKG 12/05/2018. Asymptomatic, with normal BMP, BNP and Mg on 12/06/2018. D/W Cardiology, Dr. Ba. No indication for intervention or change in treatment plan. Repeat BMP within normal limits on 12/17 * Irregular rhythm has resolved. * 12/15 - sounds like he may be in bigeminy today Dyslipidemia. Continue atorvastatin. BPH. Continue finasteride. Prophylaxis. Mobility is much improved. Discontinued heparin, 12/08/2018. Follow up: PCP Cardiology Neurology 12/17/18 10:02 Subjective: Doing well - Feeling excited about returning home but note some nervousness not being where he has all the same support. Recognizes he is ready and will continue to make gains. NO new neurologic changes. Continent of b/b. no new fevers/chills. Objective: Vital Signs Temp Pulse Resp BP Pulse Ox 97.6 F 58 L 18 141/81 H 93 12/17/18 08:00 12/17/18 08:00 12/17/18 08:00 12/17/18 08:00 12/17/18 08:00 Laboratory Results 12/17/18 06:30 12/16/18 12/17/18 12/18/18 05:59 05:59 05:59 Intake Total 1485 897 550 Balance 1485 897 550 Physical Exam - Physical Exam General Appearance: alert, no apparent distress EENT: other (Right sided facial droop) Respiratory: lungs clear Cardiac/Chest: regular rate, rhythm Abdomen: non-tender, soft Skin: normal color Neuro/Psych: alert, other (Flat affect) ICD10 Worksheet Patient Problems: Problems Problem Status Onset Facial droop Acute Hemorrhagic stroke Acute
[2018-12-18 08:49] VITALS: BP 134/79
[2018-12-18] MEDS: FINASTERIDE 5 MG TAB PO SCH (08:55)
[2018-12-18] MEDS: ASPIRIN EC 81 MG TAB PO SCH (08:55)
[2018-12-18] MEDS: HYDROCHLOROTHIAZIDE 25 MG TAB PO SCH (08:55)
[2018-12-18] MEDS: ATORVASTATIN CALCIUM 40 MG TAB PO SCH (08:55)
[2018-12-18] MEDS: IRBESARTAN 150 MG TAB PO SCH (08:55)
--- NOTE | 2018-12-18 09:16 | PDOREHIP ---
Admission [facility] - Admission - 3 Day Assessment Period Admission Date/Day 1: 12/05/18 Day 2: 12/06/18 Day 3: 12/07/18 - Active Diagnoses Comorbidities and Co-existing Conditions at Admission: 95745. None of the Above - Skin Conditions Unhealed Pressure Ulcer (1 or more/Stage 1 or >)-Admission: 0. No (Late entry) # Stage 1 Pressure Ulcers-Admission: 0 # Stage 2 Pressure Ulcers-Admission: 0 # Stage 3 Pressure Ulcers-Admission: 0 # Stage 4 Pressure Ulcers-Admission: 0 # Unstageable Pressure Ulcers (Non-remove Dress)-Admission: 0 # Unstageable Pressure Ulcers (Slough/Eschar)-Admission: 0 # Unstageable Pressure Ulcers (Deep Tissue Injury)-Admission: 0 Discharge [facility] - Discharge - 3 Day Assessment Period 2 Days Prior to Anticipated Discharge Date: 12/16/18 1 Day Prior to Anticipated Discharge Date: 12/17/18 Anticipated Discharge Date: 12/18/18
--- NOTE | 2018-12-18 09:17 | PDOREHIP ---
Admission [facility] - Admission - 3 Day Assessment Period Admission Date/Day 1: 12/05/18 Day 2: 12/06/18 Day 3: 12/07/18 - Active Diagnoses Comorbidities and Co-existing Conditions at Admission: 10051. None of the Above Discharge [facility] - Discharge - 3 Day Assessment Period 2 Days Prior to Anticipated Discharge Date: 12/16/18 1 Day Prior to Anticipated Discharge Date: 12/17/18 Anticipated Discharge Date: 12/18/18 - Discharge Skin Conditions Unhealed Pressure Ulcer (1 or more/Stage 1 or >)-Discharge: 0. No # Stage 1 Pressure Ulcers-Discharge: 0 # Stage 2 Pressure Ulcers-Discharge: 0 # of These Stage 2 Pressure Ulcers Present on Admission: 0 # Stage 3 Pressure Ulcers-Discharge: 0 # of These Stage 3 Pressure Ulcers Present on Admission: 0 # Stage 4 Pressure Ulcers-Discharge: 0 # of These Stage 4 Pressure Ulcers Present on Admission: 0 # Unstageable Pressure Ulcers (Non-remove Dress)-Discharge: 0 # These Unstageable Pressure Ulcers (NRD)-Present on Admit: 0 # Unstageable Pressure Ulcers (Slough/Eschar)-Discharge: 0 # These Unstageable Pressure Ulcers(Slough) Present on Admit: 0 # Unstageable Pressure Ulcers (Deep Tissue Injury)-Discharge: 0 # These Unstageable Pressure Ulcers (DTI) Present on Admit: 0
--- NOTE | 2018-12-18 18:40 | GDS ---
[f rep st] DISCHARGE SUMMARY ADMITTING DIAGNOSIS: Left basal ganglia hemorrhagic cerebrovascular accident with right-sided weakness. DISCHARGE DIAGNOSIS: Left basal ganglia hemorrhagic cerebrovascular accident with right-sided weakness. OTHER DISCHARGE DIAGNOSES: 1. Dysarthria. 2. Hypertension. 3. Insomnia. 4. Coronary artery disease with drug-eluting stent. 5. Ventricular bigeminy. COMPLICATIONS: There were none. CONSULTATIONS: There were none. PROCEDURES: There were none. HISTORY AND HOSPITAL COURSE: This patient was admitted from [facility]. He had initially presented at [facility] on 12/01/2018 for right facial droop, slurred speech, and progressive right upper extremity weakness. A head CT showed a left basal ganglia intracranial hemorrhage of 1.5 x 2.2 cm x 1.[address] showed a slight expansion. He was transferred to [facility] for further care, and there, the hemorrhage remained stable and there was no indication for surgical intervention. His amlodipine dose was increased, and he was also treated with hydralazine as needed to maintain blood pressure control. Antiplatelet agents were held due to the bleed. He was otherwise medically stabilized and appropriate for inpatient rehabilitation. He did well in rehabilitation. He regained independence with mobility and activities of daily living. He ambulated 650 feet using a trekking pole, though he needed supervision when he was fatigued. There was a right hemineglect and path-finding issues regarding objects on the right side. He had difficulties with sequencing and repair of his right upper and lower extremities and had loss of balance at times. He was working on ambulation while carrying items and with maintaining right foot clearance. He climbed and descended 18 stairs with left upper extremity on the rail. He achieved independence or modified independence with assistive device for activities of daily living. He had dysarthria. He had neuromuscular electronic stimulation for right labial and lingual muscle weaknesses and he had improvement. Regarding hypertension in the hospital, his amlodipine had been increased from 5 mg daily to 5 mg twice a day. During his stay on rehab, he developed lower extremity edema. Hydrochlorothiazide was increased from 12.5 mg a day to 25 mg a day, and amlodipine was reduced to 5 mg a day. He then had some increased blood pressures, so amlodipine was increased at 7.5 mg daily starting. Subsequently, he had adequate blood pressure control, but he continued to have slight edema in the lower extremities. He had insomnia during his stay. This responded to trazodone. He was oversedated with 50 mg at h.s. but did well with 25 mg at h.s. The patient had concerns about sleep apnea and he was advised to have a sleep study as an outpatient after discharge. He has a history of coronary artery disease with a drug-eluting stent which was placed in December of 2017, and he had been on clopidogrel, as well as aspirin, when he had his stroke. This was discussed with his cardiology office. They advised to not restart clopidogrel. Aspirin was restarted on the advice of Neurology. He had an irregular heart rate. EKG was done on 12/05/2018 which showed ventricular bigeminy. He was asymptomatic and labs were normal including BMP, BNP, and magnesium. This was discussed with Cardiology, who felt there was no indication for any intervention or change in his treatment. He was intermittently in and out of irregular heart. DISPOSITION: Home with his . DISCHARGE CONDITION: Good. DIET: Regular. ACTIVITY: Ad thais. MEDICATIONS UPON DISCHARGE: 1. Amlodipine 7.5 mg p.o. daily. 2. Aspirin 81 mg p.o. daily. 3. Atorvastatin 80 mg p.o. daily. 4. Finasteride 5 mg p.o. daily. 5. Hydrochlorothiazide 25 mg p.o. daily. 6. Irbesartan 300 mg p.o. daily. ISSUES TO BE ADDRESSED AT FOLLOWUP: 1. Mobility and activities of daily living. He will continue PT and OT on an outpatient basis and can follow up with his primary care provider regarding his progress. 2. Hypertension and edema. Continue current medications and follow up with primary care. 3. Hemorrhagic stroke. He has followup scheduled with neurologist, Dr. Suresh Santos. 4. Coronary artery disease status post drug-eluting stent approximately 1 year ago. Continue aspirin alone and follow up with intake clerk, Dr. Slick Montana. Greater than 30 minutes were spent on this discharge including medication reconciliation, coordination of care, and counseling patient. The patient was seen and examined on the day of discharge. /[id number]/MODL MTDD
== END 2018-12-18 13:17 | disposition home or self-care (01) | DRG 57 ==
LOC: BREH 15:16
PROVIDERS: ADMIT Internal Medicine Hospice and Palliative Medicine; ATTEND Internal Medicine Hospice and Palliative Medicine
PROC: F0636ZZ Communicative/Cognitive Integration Skills Treatment of Neurological System - Whole Body (ICD-10-PCS; principal; 2018-12-05)
PROC: F07M3ZZ Motor Function Treatment of Musculoskeletal System - Whole Body (ICD-10-PCS; principal; 2018-12-05)
PROC: F08Z7ZZ Vocational Activities and Functional Community or Work Reintegration Skills Treatment (ICD-10-PCS; principal; 2018-12-05)
DX: I69.151 Hemiplegia and hemiparesis following nontraumatic intracerebral hemorrhage affecting right dominant side (principal); I69.122 Dysarthria following nontraumatic intracerebral hemorrhage; I25.10 Atherosclerotic heart disease of native coronary artery without angina pectoris; Z95.5 Presence of coronary angioplasty implant and graft; Z79.82 Long term (current) use of aspirin; Z79.02 Long term (current) use of antithrombotics/antiplatelets; I10 Essential (primary) hypertension; E78.5 Hyperlipidemia, unspecified; N40.0 Benign prostatic hyperplasia without lower urinary tract symptoms; G47.33 Obstructive sleep apnea (adult) (pediatric); I34.0 Nonrheumatic mitral (valve) insufficiency
CPT/HCPCS: 92507-GN; 92523-GN; 92610-GN; 97110-GO; 97110-GP; 97112-GO; 97112-GP; 97116-GP; 97161-GP; 97166-GO; 97530-GO; 97530-GP; 97535-GO; G0515-GO; J1644

== ENCOUNTER → 2018-12-22 | Outpatient (CLI) | payer OTHER | LOC: BHFA 14:30 | PROVIDERS: ATTEND Internal Medicine Cardiovascular Disease | DX: I49.3 Ventricular premature depolarization (principal); I61.9 Nontraumatic intracerebral hemorrhage, unspecified ==

== ENCOUNTER 2019-02-09 10:08 | Day surgery (SDC) | payer OTHER ==
[2019-02-09] MEDS ORDERED: NS 500 ML IV ONE (10:12)
[2019-02-09] MEDS ORDERED: MIDAZOLAM 2 MG/2 ML VIAL IVP ONE (10:12)
[2019-02-09] MEDS ORDERED: BENZOCAINE UNIT DOSE SPRAY HURRICAINE MM ONE (10:12)
[2019-02-09] MEDS ORDERED: fentaNYL 100 MCG/2 ML INJ IVP ONE (10:12)
--- NOTE | 2019-02-09 10:12 | PDHPUP ---
History & Physical Update H&P update statement: This history and physical update is based on an assessment of the patient which was completed after admission or registration (within 24 hours), but prior to the surgery/procedure. H&P update: H&P reviewed & patient examined, no change in patient's condition since H&P completed
[2019-02-09] MEDS ORDERED: PROPOFOL 200 MG/20 ML VIAL ONE (11:15)
--- NOTE | 2019-02-09 11:18 | POSTANESTH ---
Post Anesthetic Evaluation Cardiovascular Status: Normal, Stable Respiratory Status: Normal, Stable Level of Consciousness/Mental Status: Can Participate in Eval, Mildly Sleepy, Arousable Pain Control: Adequate, Prn Tx Ordered Nausea/Vomiting Control: Adequate, Prn Tx Ordered Complications Possibly Related to Anesthesia: None Noted
--- NOTE | 2019-02-09 11:18 | PDANEPAE ---
ANE History of Present Illness MERLENE/CV ANE Past Medical History - Cardiovascular History Hx Hypertension: No Hx Arrhythmias: Yes Hx Chest Pain: No Hx Coronary Artery / Peripheral Vascular Disease: Yes Hx CHF / Valvular Disease: No Hx Palpitations: No - Pulmonary History Hx COPD: No Hx Asthma/Reactive Airway Disease: No Hx Recent Upper Respiratory Infection: No Hx Oxygen in Use at Home: No Hx Sleep Apnea: Yes - Endocrine History Hx Diabetes: No Hypothyroid: No Hyperthyroid: No Obesity: no - Chronic Pain History Chronic Pain: No ANE Review of Systems Review of systems is: negative Review of Systems: - Exercise capacity Exercise capacity: >=4 METS ANE Patient History - Allergies Allergies/Adverse Reactions: No Known Allergies Allergy (Verified 12/01/18 20:09) - Home Medications Home medications: home medication list seen and reviewed Home Medications: Acetaminophen [Tylenol 325mg (*)] 650 mg PO Q4 PRN 12/05/18 [Last Taken Unknown] - Anes Hx Anes Hx: no prior problems - Smoking Hx Smoking Status: Never smoked ANE Labs/Vital Signs - Vital Signs Height: 175.26 cm Weight: 81.647 kg ANE Physical Exam - Airway Neck exam: FROM Mallampati Score: Class 2 Mouth exam: normal dental/mouth exam - Pulmonary Pulmonary: no respiratory distress - Cardiovascular Cardiovascular: regular rate and rhythym - ASA Status ASA Status: III ANE Anesthesia Plan Anesthesia Plan: GA with mask
--- NOTE | 2019-02-09 16:32 | ECHO ---
[email or web address] [address] [address] Main: [phone] Echocardiography Examination Transesophageal Name: MARIA LUISA CHAN MR#: [id number] Study Date: 02/09/2019 Study Time: 11:29 AM Date of : 1940 Age: 78 year(s) Height: ( ) Weight: ( ) BSA: Gender: Male Examination: MERLENE Contrast: Image Quality: Adequate Rhythm: Heart Rate: BP: / Indication: Pre Watchman Assessment Procedure Staff Referring Physician: Temp Recruiter: Violet Melendez [facility] Reading Physician: Chari Berger MD Requesting Provider: Ordering Physician: Chari Berger MD Indication: Pre Watchman Assessment Acute complication: None Measurements AV/MV Label Value Normal Value AV PGmax 4 mmHg AV Vmax 1.01 m/s Conclusions 1. The left ventricle is normal in size and systolic function. 2. The right ventricle is normal in size and systolic function. 3. There is no left atrial appendage thrombus. Left atrial anatomy is windsock formation and measurements appear favorable for Watchman implantation. Please see below. 4. moderate mitral regurgitation, 3 separate jets. 5. Mild tricuspid regurgitation. 6. The aortic valve is structurally and functionally normal. 7. Mild atheroma in the descending aorta. Findings Left Ventricle: Left ventricle is normal in size. Normal global systolic left ventricular function. Patient: MARIA LUISA CHAN Study Date: 02/09/2019 Page 1 of 2 11:29 AM Right Ventricle: Normal size right ventricle. Right ventricular systolic function is normal. Left Atrium: At 45 degrees, the REX measures 1.5 by 1.7 cm. At 90 degrees, the REX measures 1.6 by 1.4 cm. At 0 degrees, the REX measures 1.6 by 2.1 cm. At 135 degrees, the REX measures 1.35 by 1.85 cm. Left Atrium Appendage: No thrombus is identified. IAS: An agitated saline study was performed and was negative for intracardiac shunting. Mitral Valve: Moderate mitral regurgitation with multiple jets. Mitral valve appears structurally normal. Aortic Valve: Aortic leaflets are structurally normal. No significant aortic valve regurgitation. Tricuspid Valve: Tricuspid valve leaflets are structurally normal. Mild tricuspid regurgitation. Aorta: Mild atheroma in the descending aorta. Pericardium: No pericardial effusion. Exam Details Procedure Ordered: MERLENE Procedure Status: Routine study Image Quality: Adequate Consent: Risks, alternatives of procedure explained to patient, informed consent obtained Probe Insertion: Attending air quality engineer Facility Location: Cardiac Echo 1 (No Signature Object) Patient: MARIA LUISA CHAN Study Date: 02/09/2019 Page 2 of 2 11:29 AM [id number]
== END 2019-02-09 13:12 | disposition home or self-care (01) ==
LOC: FCATH 10:08
PROVIDERS: ATTEND Internal Medicine Cardiovascular Disease
PROC: B246ZZ4 Ultrasonography of Right and Left Heart, Transesophageal (ICD-10-PCS; principal; 2019-02-09)
DX: Z01.810 Encounter for preprocedural cardiovascular examination (principal); I34.0 Nonrheumatic mitral (valve) insufficiency; I36.1 Nonrheumatic tricuspid (valve) insufficiency; I48.92 Unspecified atrial flutter; I48.0 Paroxysmal atrial fibrillation; I10 Essential (primary) hypertension; I25.10 Atherosclerotic heart disease of native coronary artery without angina pectoris; E78.5 Hyperlipidemia, unspecified; Z86.73 Personal history of transient ischemic attack (TIA), and cerebral infarction without residual deficits; Z95.5 Presence of coronary angioplasty implant and graft
CPT/HCPCS: J2704

== ENCOUNTER → 2019-02-26 | Outpatient (CLI) | payer OTHER | LOC: FIMAGING 10:35 ==

== ENCOUNTER 2019-03-06 06:26 | Inpatient (IN) | payer OTHER | END 2019-03-07 12:31 | disposition home or self-care (01) | LOC: F3N 06:26 → F2W 11:10 ==